=== PATIENT | female | born 1960 | race Caucasian/White ===

== ENCOUNTER → 2018-01-03 08:41 | Outpatient (CLI) | payer BC, SELFPAY ==
--- NOTE | 2018-01-03 08:53 | XR_ITS ---
XR knee LT 3V HISTORY: ITS.REASON: LEFT KNEE PAIN ORDERING PHYSICIAN: Odette Whiteehad PATIENT AGE: 57 years COMPARISON: None FINDINGS: No fracture or dislocation. No lytic or blastic change. Normal mineralization. No significant arthritic changes evident. No other significant findings IMPRESSION: Negative Knee
== END ==
PROVIDERS: PCP Nurse Practitioner Family; Visit Provider Nurse Practitioner Family
DX: M25.562 Pain in left knee (principal)
CPT/HCPCS: 73562

== ENCOUNTER 2020-08-07 10:58 | Outpatient (CLI) | payer BC, SELFPAY ==
[2020-08-07] VITALS (9 sets, daily range): BP systolic 112–140; BP diastolic 65–73; PULSE 63–77; RESP 16–20; TEMP 36.8–37.2; O2SAT 93–94
== END 2020-08-07 13:32 | disposition home or self-care (01) ==
PROVIDERS: PCP Family Medicine; Visit Provider Family Medicine
DX: U07.1 COVID-19 (principal)
CPT/HCPCS: 96365

== ENCOUNTER → 2021-12-29 16:50 | Outpatient (CLI) | payer BC, SELFPAY ==
[2021-12-29 18:59] LABS: Amphetamine/Metha Screen,Urine Negative ng/ml (<1000)
[2021-12-29 19:00] LABS: Barbiturates Screen,Urine Negative ng/ml (<200); Benzodiazepines Screen,Urine Negative ng/ml (<200)
[2021-12-29 19:01] LABS: Cannabinoid Screen,Urine Negative ng/ml (<50)
[2021-12-29 19:02] LABS: Cocaine Screen,Urine Negative ng/ml (<300); Methadone Screen,Urine Negative ng/ml (<300)
[2021-12-29 19:03] LABS: Opiate Screen,Urine Negative ng/ml (<300)
[2021-12-29 19:04] LABS: Phencyclidine Screen,Urine Negative ng/ml (<25)
== END ==
PROVIDERS: Visit Provider Emergency Medicine
DX: Z79.899 Other long term (current) drug therapy (principal)
CPT/HCPCS: 80305

== ENCOUNTER 2024-04-28 13:45 | Emergency (ER) | payer BC, SELFPAY ==
[2024-04-28 14:01] VITALS: BP 149/54; PULSE 73; RESP 20; TEMP 36.7; O2SAT 98; BMI 17.4
--- NOTE | 2024-04-28 14:11 | EXP.UTC ---
Discharge Plan Disposition Patient Disposition: Home, Self-Care Condition: Good Prescriptions Prescriptions: No Action amoxicillin 500 mg tablet 500 mg PO BID 10 Days Qty: 20 0RF Anoro Ellipta 62.5-25 mcg/actuation blister with device 1 inh inhalation DAILY Qty: 60 3RF Referrals Follow up/Referrals: Emperatriz Angeles MD [Primary Care Provider] - See instructions Activity Restrictions/Add. Instructions Additional Instructions/Restrictions: Go to Dr. Muhammad office by 3:30. He will meet you there for an examination. Do not strain your eyes with reading, watching television, or exercising. Clinical Impressions Clinical Impression: Vitreous floaters of left eye Instructions Patient Instructions: DI for Eye Floaters Print Language Print Language: Kazakh Discharge ED Provider: Cortney Naranjo [facility] General Stated complaint: left eye foggy Mode of Arrival: Ambulatory Source of Information: Patient Time Seen by Provider: 04/28/24 14:09 Description of Symptoms (Recalled from Triage Doc. by RN): BLACK FLOATERS IN LEFT EYE TOWARDS THE BOTTOM, STATES MILD HEADACHE TOWARDS BACK OF HEAD HEENT Symptoms (Recalled from RN notes): Yes Resp Symptoms (Recalled from RN notes): No Skin Symptoms (Recalled from RN notes): No MS Symptoms (Recalled from RN notes): No Functional Status (Recalled from RN notes): WNL History of Present Illness Provider Complaint: Pt reports that she was cleaning at around 1 pm she noticed a substantial amount of floaters appeared in her left eye. She thought perhaps she got something in her eye and removed her contacts and flushed her eye out. She reports that the floaters remained and most have accumulated in the left lower quadrant of her eye. Reports that vision is foggy in that eye. Related Data Previous Rx's ?Medication ?Instructions ?Recorded amoxicillin 500 mg tablet 500 mg PO BID 10 days #20 tabs 05/25/22 umeclidinium 62.5 mcg-vilanterol 1 inh inhalation DAILY #60 ea 06/08/23 25 mcg/actuation powdr for inhalation (Anoro Ellipta) Allergies Allergy/AdvReac Type Severity Reaction Status Date / Time From AUGMENTIN Allergy Mild I-RASH Uncoded 10/21/17 14:05 MORPHINE Allergy Mild UKNOWN Uncoded 10/21/17 14:05 Worker's Comp Is this a Worker's Comp case?: No [facility] Disclaimer: The information contained in this section may have been updated after the patient was seen, as this information can be updated by other users. Social History Smoking Status: Current every day smoker tobacco type: cigarettes packs per day: 2 alcohol intake: current alcohol intake frequency: holidays/special occasions only current occupational status: employed Travel in the last 8 weeks: None household members: family housing: house ROS Obtained: Yes All systems reviewed & no additional complaints except as documented Constitutional Constitutional: Reports system reviewed and no additional complaints, except as documented and Reports headache(s) Eyes Eyes: Reports system reviewed and no additional complaints, except as documented, Reports change in vision, Reports floaters and Reports requires corrective lenses ENT Ears, Nose, Mouth, and Throat: Reports system reviewed and no additional complaints, except as documented and Reports headache(s) Cardiovascular Cardiovascular: Reports system reviewed and no additional complaints, except as documented Respiratory Respiratory: Reports system reviewed and no additional complaints, except as documented Gastrointestinal Gastrointestingal: Reports system reviewed and no additional complaints, except as documented Genitourinary Female Genitourinary: Reports system reviewed and no additional complaints, except as documented Musculoskeletal Musculoskeletal: Reports system reviewed and no additional complaints, except as documented Integumentary/Breasts Skin/Breast: Reports system reviewed and no additional complaints, except as documented Neurologic Neurologic: Reports system reviewed and no additional complaints, except as documented and Reports headache(s) Endocrine Endocrine: Reports system reviewed and no additional complaints, except as documented Hematologic/Lymphatic Henatologic/Lymphatic: Reports system reviewed and no additional complaints, except as documented Allergic/Immunologic Allergic/Immunologic: Reports system reviewed and no additional complaints, except as documented Physical Exam General General appearance: alert and in no apparent distress Head Head exam: atraumatic and normocephalic Eye Eye exam: Present normal appearance, PERRL and EOMI ENT ENT exam: Present normal exam and normal oropharynx Neck Neck exam: Present normal inspection Chest Chest inspection: Present normal inspection and symmetric chest wall rise Respiratory Respiratory exam: Present normal lung sounds bilaterally Cardiovascular Cardiovascular exam: Present regular rate and normal rhythm Abdominal Exam Abdominal exam: Present soft Extremities Exam Extremities exam: Present normal inspection Back Exam Back exam: Present normal inspection Neurological Exam Neurological exam: Present alert and oriented X3 Psychiatric Psychiatric exam: Present normal affect and normal mood Skin Skin exam: Present warm, dry and intact Lymphatic Lymphatic Findings: no adenopathy Medical Decision Making Medical Records Screening: Per USPSTF and CDC recommendations, given the prevalence of disease in our region, it is our hospital?s policy to screen for HIV and viral Hepatitis for all patients aged 18 and over and those with ongoing risk factors. Jesus Inquiry Pt receiving controlled substance: No Jesus was queried for this patient: No Vital Signs: 04/28/24 14:01 Temperature 98.0 F Temperature Source Oral Pulse Rate [Left Brachial] 73 Respiratory Rate 20 Blood Pressure [Left Arm] 149/54 H Blood Pressure Mean [Left Arm] 85 02 Sat by Pulse Oximetry 98 Medical Decision Narrative: Discussed pt symptoms with Dr. Muhammad. He advised that he will see pt in his office at 3:30pm today.
[2024-04-28 14:43] VITALS: BP 149/54; PULSE 73; RESP 20; TEMP 36.7
== END 2024-04-28 14:46 | disposition home or self-care (01) ==
PROVIDERS: Emergency Provider Nurse Practitioner Family; PCP Family Medicine
DX: H43.392 Other vitreous opacities, left eye (principal); H53.8 Other visual disturbances; R51.9 Headache, unspecified
CPT/HCPCS: 99212; G0381

== ENCOUNTER 2025-03-13 15:45 | Outpatient (CLI) | payer BC, SELFPAY | END 2025-03-13 23:59 | disposition home or self-care (01) | LOC: LAB.DROPOF 03-14 13:21 | PROVIDERS: PCP Student in an Organized Health Care Education/Training Program; Visit Provider Student in an Organized Health Care Education/Training Program | DX: N39.0 Urinary tract infection, site not specified (principal) | CPT/HCPCS: 87086 ==

== ENCOUNTER 2025-03-18 15:42 | Inpatient (IN) | payer BC, SELFPAY ==
[2025-03-18] VITALS (8 sets, daily range): BP systolic 120–153; BP diastolic 44–93; PULSE 58–86; RESP 13–20; TEMP 36.6–36.7; O2SAT 92–98; BMI 18.3; BMI 17.4
--- NOTE | 2025-03-18 16:16 | CT_ITS ---
PROCEDURE INFORMATION: Exam: CT Abdomen And Pelvis With Contrast Exam date and time: 03/18/2025 5:02 PM Age: 65 years old Clinical indication: Other: No bm 1 week, passing flatus, dysuria TECHNIQUE: Imaging protocol: Computed tomography of the abdomen and pelvis with contrast. Total images: 254 Radiation optimization: All CT scans at this facility use at least one of these dose optimization techniques: automated exposure control; mA and/or kV adjustment per patient size (includes targeted exams where dose is matched to clinical indication); or iterative reconstruction. Contrast material: ISOVUE; Contrast volume: 75 ml; Contrast route: IV; COMPARISON: No relevant prior studies available. FINDINGS: Lungs: Lung bases are clear. Liver: Normal. No mass. Gallbladder and biliary ducts: Status post cholecystectomy. Pancreas: Normal. No ductal dilation. Spleen: Granulomatous calcifications present within the spleen. Adrenal glands: Normal. No mass. Kidneys and ureters: Normal. No hydronephrosis. Stomach and bowel: Thickening of the ly of the descending and rectosigmoid colon. Findings may be consistent with colitis/diverticulitis. Air and fluid collection is noted adjacent to the areas of colitis which may be consistent with developing abscess. Large amount of stool is present throughout the colon. Appendix: No evidence of appendicitis. Intraperitoneal space: Normal. No significant fluid collection. Vasculature: Unremarkable. No abdominal aortic aneurysm. Lymph nodes: No mesenteric or retroperitoneal lymphadenopathy. Urinary bladder: Unremarkable as visualized. Reproductive: Unremarkable as visualized. Bones/joints: The lumbar spine demonstrates mild degenerative changes at multiple levels. Soft tissues: Soft tissues are normal. Other findings: Fluid noted within the pelvis. IMPRESSION: 1. Thickening of the ly of the descending and rectosigmoid colon. Findings may be consistent with colitis/diverticulitis. 2. Air and fluid collection is noted adjacent to the areas of colitis which may be consistent with developing abscess. 3. Fluid noted within the pelvis. 4. No mesenteric or retroperitoneal lymphadenopathy. 5. Large amount of stool is present throughout the colon.
[2025-03-18 16:26] LABS: Microscopic, Urine URINE MICROSCOPIC (MICROSCOPIC)
[2025-03-18] MEDS: ACETAMINOPHEN 1,000MG/100ML VIAL 1000 MG IV (16:28)
[2025-03-18] MEDS: LACTATED RINGERS 1000ML 1,000 ML 999 ML IV (16:29)
[2025-03-18] MEDS: ONDANSETRON 4MG/2ML VIAL 4 MG IV ×2 (16:29→22:25)
[2025-03-18 16:35] LABS: Hematocrit 43.4 % (37.0-47.0); Hemoglobin 14.7 g/dL (12.2-16.2); Immature Granulocytes % 0.3 %; Mean Corpuscular HGB Conc 33.9 g/dL (31.8-35.4); Mean Corpuscular Hemoglobin 30.9 pg (27.0-31.2); Mean Corpuscular Volume 91.2 fl (81-99); Nucleated Red Blood Cells % 0 %; Platelet Count 289 K/mm3 (142-424); Red Blood Count 4.76 M/mm3 (4.20-5.40); Red Cell Distribution Width-SD 40.1 fL; White Blood Count 11.7 K/mm3 (4.8-10.8)
[2025-03-18 16:37] LABS: Albumin Level 4.2 g/dl (3.5-5.0); Chloride 96 mmol/L (98-107); Sodium 137 mmol/L (136-145)
[2025-03-18 16:39] LABS: Bilirubin,Urine Negative (Negative); Color,Urine YELLOW (Yellow); Glucose,Urine (UA) Negative (Negative); Ketones,Urine Negative (Negative); Leukocyte Esterase,Urine Negative (Negative); PH,Urine 6.0 (5.0-8.5); Protein,Urine TRACE (Negative); Specific Gravity, Urine 1.020 (1.005-1.030); Urobilinogen,Urine 4.0 EU/dl (0.2)
[2025-03-18 16:40] LABS: Alanine Aminotransferase 12 U/L (12-78); Albumin/Globulin Ratio 1.2 (1.1-1.8); Alkaline Phosphatase 106 U/L (38-126); Anion Gap 10.9 mEq/L (5-15); Aspartate Amino Transferase 21 U/L (14-36); Bilirubin,Total 1.1 mg/dl (0.2-1.3); Blood Urea Nitrogen 6 mg/dl (7-17); Carbon Dioxide 33 mmol/L (22.0-30.0); Creatinine Clearance Estimated 39 mL/min (50-200); Creatinine,Serum 0.50 mg/dl (0.52-1.04); Estimated Glomerular Filt Rate 125 ml/min (>60); GFR (African American) 151 ML/MIN (>60); Globulin 3.6 g/dL (1.3-3.2); Lipase 41 U/L (23-300); Total Protein,Serum 7.8 g/dl (6.3-8.2)
[2025-03-18 16:41] LABS: Calcium 9.3 mg/dl (8.4-10.2); Glucose 138 mg/dl (74-100)
--- NOTE | 2025-03-18 16:42 | HMH.EDGENADL ---
Discharge Plan Disposition Patient Disposition: Admitted Clinical Impressions Clinical Impression: Perforated sigmoid colon, Abdominal abscess, Acute hypokalemia Discharge ED Provider: Ji Hernandez General Adult HPI General Chief complaint: Abdominal Pain Stated complaint: Lower abdominal pain Time Seen by Provider: 03/18/25 16:02 Mode of Arrival: Ambulatory Source of Information: Patient Description of Symptoms (Recalled from ER Triage Doc. by RN): pt presents for evaluation of abdominal pain and constipation x 1 week. History of Present Illness HPI narrative: Patient is a 65-year-old female with past medical history of previous cholecystectomy with diarrhea at baseline who presents to the emergency department for evaluation of inability to have a bowel movement. Patient was seen for suprapubic discomfort recently and treated with Macrobid for a urinary tract infection which culture grew out negative. Last bowel movement last Tuesday or Tuesday, is still able to pass flatus with pain and straining. No trauma. No chest pain reported. No other acute complaints at this time. Please note that above description of symptoms, in this electronic medical record under categorization of recalled from ER triage doctor by RN are reflective of an initial nursing assessment, however, is not reflective of my full history and physical exam that was personally taken and clarified. Consequentially, this preceding description of symptoms, which may include the patient's categorized chief complaint in the EMR, do not reflect my personal clinical impression, and the ultimate description of history of present illness and patient stated complaints should be deferred to this section of the note. Unless stated otherwise or congruent with this section of the note, additional signs, symptoms, or incongruence should be interpreted as inaccurate with my clinical impression. Related Data Previous Rx's ?Medication ?Instructions ?Recorded nitrofurantoin 100 mg PO Q12H 7 days #14 caps 03/13/25 monohydrate/macrocrystals 100 mg capsule Allergies Allergy/AdvReac Type Severity Reaction Status Date / Time From AUGMENTIN Allergy Mild I-RASH Uncoded 03/13/25 16:50 MORPHINE Allergy Mild UKNOWN Uncoded 03/13/25 16:50 PFSH [facility] Disclaimer: The information contained in this section may have been updated after the patient was seen, as this information can be updated by other users. Social History Smoking Status: Current every day smoker tobacco type: cigarettes packs per day: 2 alcohol intake: current alcohol intake frequency: holidays/special occasions only current occupational status: employed Travel in the last 8 weeks?: None household members: family housing: house Have you lived/traveled outside US in past 30 days?: No Contact w/someone who lives/traveled outside US past 30 days?: No Exposure to someone with infectious disease in past 14 days?: No Do you have a fever (greater than 100.4 F or 38 C)?: No Have you tested positive for COVID-19?: No Exposed to someone with COVID-19 in past 14 days?: No Do you have a sore throat?: No Do you have a cough?: No Do you have any weakness?: No Do you have any diarrhea?: No Are you experiencing any unusual bleeding?: No Do you have any muscle aches/pain?: No Do you have any abdominal pain?: No Are you experiencing loss of taste or smell?: No Other Medical History Have you received the Flu Vaccine for this season: No Have you received the Pneumonia Vaccine: No ROS Obtained: Yes Systems reviewed as appropriate & no additional complaints except as documented Physical Exam General General appearance: alert and in no apparent distress Head Head exam: atraumatic and normocephalic Eye Eye exam: Present PERRL and EOMI ENT ENT exam: Present mucous membranes moist Neck Neck exam: Present normal inspection Chest Chest inspection: Present normal inspection and symmetric chest wall rise Respiratory Respiratory exam: Present normal lung sounds bilaterally; Absent respiratory distress Cardiovascular Cardiovascular exam: Present regular rate and normal rhythm Abdominal Exam Abdominal exam: Present soft, distention (Mild) and tenderness (Mild, diffuse, worse suprapubic) Extremities Exam Extremities exam: Present normal inspection Neurological Exam Neurological exam: Present alert Psychiatric Psychiatric exam: Present normal affect Skin Skin exam: Present warm and dry Medical Decision Making Medical Records Screening: Per USPSTF and CDC recommendations, given the prevalence of disease in our region, it is our hospital?s policy to screen for HIV and viral Hepatitis for all patients aged 18 and over and those with ongoing risk factors. Jesus Inquiry Pt receiving controlled substance: No Vital Signs: 03/18/25 15:57 03/18/25 16:31 03/18/25 17:30 Temperature 98 F Temperature Source Oral Pulse Rate 75 79 Pulse Rate [Right] 86 Respiratory Rate 18 18 Blood Pressure 127/44 L Blood Pressure [Right Arm] 138/56 L Blood Pressure Mean Blood Pressure Mean [Right Arm] 83 Blood Pressure Source [Right Arm] Automatic Cuff Blood Pressure Position [Right Arm] Sitting 02 Sat by Pulse Oximetry 98 93 L 97 Oxygen Delivery Method Room Air 03/18/25 17:56 03/18/25 18:00 03/18/25 18:30 Temperature Temperature Source Pulse Rate 58 L 65 75 Pulse Rate [Right] Respiratory Rate 19 17 16 Blood Pressure 120/67 132/71 142/93 H Blood Pressure [Right Arm] Blood Pressure Mean 103 Blood Pressure Mean [Right Arm] Blood Pressure Source [Right Arm] Blood Pressure Position [Right Arm] 02 Sat by Pulse Oximetry 94 L 94 L 96 Oxygen Delivery Method 03/18/25 19:57 Temperature 98.1 F Temperature Source Pulse Rate 68 Pulse Rate [Right] Respiratory Rate 20 Blood Pressure 153/88 H Blood Pressure [Right Arm] Blood Pressure Mean Blood Pressure Mean [Right Arm] Blood Pressure Source [Right Arm] Blood Pressure Position [Right Arm] 02 Sat by Pulse Oximetry Oxygen Delivery Method Room Air Lab Data Lab Results 03/18/25 16:20: WBC 11.7 H, RBC 4.76, Hgb 14.7, Hct 43.4, MCV 91.2, MCH 30.9, MCHC 33.9, RDW 11.9, Plt Count 289, MPV 8.7, Neut % (Auto) 81.9 H, Lymph % (Auto) 8.9 L, Towner % (Auto) 8.1, Eos % (Auto) 0.4, Baso % (Auto) 0.4, Neut # (Auto) 9.6 H, Lymph # (Auto) 1.0, Towner # (Auto) 1.0, Eos # (Auto) 0.1, Baso # (Auto) 0.1, Sodium 137, Potassium 2.9 L*, Chloride 96 L, Carbon Dioxide 33 H, Anion Gap 10.9, BUN 6 L, Creatinine 0.50 L, Estimated Creat Clear 39, Estimated GFR 125, Est GFR ( Amer) 151, Glucose 138 H, Calcium 9.3, Total Bilirubin 1.1, AST 21, ALT 12, Alkaline Phosphatase 106, C-Reactive Protein 141.9 H, Total Protein 7.8, Albumin 4.2, Globulin 3.6 H, Albumin/Globulin Ratio 1.2, Lipase 41, Procalcitonin 0.061 03/18/25 16:22: Urine Color Yellow, Urine Appearance Clear, Urine pH 6.0, Ur Specific Thrall 1.020, Urine Protein Trace, Urine Glucose (UA) Negative, Urine Ketones Negative, Urine Blood 3+ A, Urine Nitrate Negative, Urine Bilirubin Negative, Urine Urobilinogen 4.0, Ur Leukocyte Esterase Negative, Urine RBC 20-50, Urine WBC 3-5, Ur Squamous Epith Cells 3-5, Urine Bacteria 1+ 03/18/25 16:20 03/18/25 16:20 Orders (Tests/Meds): ED MEDICATIONS Generic Name Dose Route Start Last Admin Trade Name Freq PRN Reason Stop Dose Admin Acetaminophen 650 mg 03/18/25 19:34 Acetaminophen 325mg Tab PO 04/17/25 19:33 Q4HP PRN Fever or Mild Pain (1-3) Potassium Chloride/Water 100 mls @ 50 mls/hr 03/18/25 17:19 03/18/25 19:24 Potassium Chloride 20meq/100ml Ivpb IV 03/18/25 21:18 50 mls/hr Q2H BRE Administration Lactated Ringer's 1,000 mls @ 100 mls/hr 03/18/25 19:45 Lactated Ringer's 1000 Ml Bag IV 04/17/25 19:44 .Q10H BRE Morphine Sulfate 2 mg 03/18/25 19:34 Morphine 2mg/Ml Syringe IV 04/17/25 19:33 Q2HP PRN Moderate Pain (4-6) Morphine Sulfate 4 mg 03/18/25 19:43 Morphine 4mg/Ml Syringe IV 04/17/25 19:42 Q4HP PRN Severe Pain (7-10) Ondansetron HCl 4 mg 03/18/25 19:34 Ondansetron 4mg/2ml Vial IV 04/17/25 19:33 Q8HP PRN Nausea Discontinued Medications Generic Name Dose Route Start Last Admin Trade Name Freq PRN Reason Stop Dose Admin Acetaminophen 1,000 mg 03/18/25 16:16 03/18/25 16:28 Acetaminophen 1,000mg/100ml Vial IV 03/18/25 16:17 1,000 mg ONCE ONE Administration Lactated Ringer's 1,000 mls @ 999 mls/hr 03/18/25 16:16 03/18/25 19:26 Lactated Ringer's 1000 Ml Bag IV 03/18/25 17:16 Infused .Q1H1M ONE Infusion Piperacillin Sod/Tazobactam 100 mls @ 200 mls/hr 03/18/25 18:12 03/18/25 19:01 Sod 4.5 gm/ Sodium Chloride IV 03/18/25 18:41 Infused ONCE ONE Infusion Iopamidol 75 ml 03/18/25 17:06 03/18/25 17:07 Iopamidol-370 (76%);100ml Bottle IV 03/18/25 17:07 75 ml ONCE ONE Administration Ondansetron HCl 4 mg 03/18/25 16:16 03/18/25 16:29 Ondansetron 4mg/2ml Vial IV 03/18/25 16:17 4 mg ONCE ONE Administration Sodium Chloride 10 ml 03/18/25 17:06 03/18/25 17:07 Sodium Chloride 0.9% 10ml Syr (Rad Only) IV 03/18/25 17:07 10 ml ONCE ONE Administration ORDERS Category Date Time Status CT abdomen pelvis w con Stat Cat Scan 03/18/25 16:16 Completed CBC w/Auto Diff [Complete Blood Count Auto Diff] Stat Lab 03/18/25 16:20 Completed CMP [Comprehensive Metabolic Panel] Stat Lab 03/18/25 16:20 Completed Lipase Stat Lab 03/18/25 16:20 Completed UA [Urinalysis and Microscopic] Stat Lab 03/18/25 16:22 Completed Medical Decision Narrative: In summary patient is a 65-year-old female past medical history described above who presents emerged part for evaluation of abdominal pain and inability to have a bowel movement. Patient is hemodynamically stable nontoxic-appearing but on, afebrile. Differential diagnosis includes constipation, incomplete bowel obstruction, stercoral colitis, among others. Workup we conducted with hematologic labs, CT abdomen pelvis IV contrast, urinalysis. Initial inventions include Zofran, IV Tylenol, crystalloid bolus. Initial workup reviewed by me hematologic labs remarkable for white blood cell count 11.7 hyponatremia she will be repleted with IV potassium no ARSENIO or critical electrolyte abnormality otherwise. Urinalysis interpreted by me there is hematuria but is not consistent with overt infection. CT imaging abdomen pelvis informally visualized by me there appears to be a fluid collection with surrounding free air in the left lower quadrant. Zosyn will be initiated. Sepsis bolus fluids were considered but will be deferred given the patient is largely euvolemic and not tachycardic. I had interactive discussion with radiology there is thickening of the ly of the descending rectosigmoid colon which may be consistent with diverticulitis versus colitis with air-fluid collection adjacent to the areas of colitis concerning for developing abscess with fluid in the pelvis. No lymphadenopathy and a large amount of stool present throughout the colon. I discussed case with Dr. Lambert regarding management this patient is appropriate to stay at our hospital with IV antibiotics to see how she responds given her hemodynamic status. I discussed this option with the patient and she does not wish to stay here [facility] Evans [facility] back, unfortunately they do not have the capacity to accept her at this time. This was relayed to the patient and she is amenable to staying here. The case discussed with hospital medicine regarding management of admit the patient to service for continued evaluation at this time. Critical Care Critical Care Time Critical Care Time: No
[2025-03-18 16:47] LABS: Potassium 2.9 mmoL/L (3.5-5.1)
[2025-03-18 16:58] LABS: Bacteria,Urine 1+ /lpf
[2025-03-18 16:59] LABS: RBC,Urine 20-50 #/hpf (0-3)
[2025-03-18] MEDS: SODIUM CHLORIDE 0.9% 10ML SYR (RAD ONLY) 10 ML IV (17:07)
[2025-03-18] MEDS: IOPAMIDOL-370 (76%);100ML BOTTLE 75 ML IV (17:07)
--- NOTE | 2025-03-18 17:19 | PC.NURSE ---
verbal order from dr malagon to give 40 of k iv for potassium 2.9
--- NOTE | 2025-03-18 18:25 | PC.NURSE ---
Called [facility] for a patient transfer they said they will call back when the hospitalist is ready to talk.
[2025-03-18] MEDS: PIPERACILLIN/TAZO 4.5 GM in 0.9 % SODIUM CHLORIDE 100 ML IV (18:28)
--- NOTE | 2025-03-18 19:34 | EXP.HP ---
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 She states she has not had a bowel movement in several days, and thinks is likely related to a week, and has been having suprapubic abdominal pain for about a week. She notes she was started on Macrobid for UTI on 03/13 but her urine culture was normal so she discontinued it. He states her abdominal pain is no better after starting Macrobid. Denies nausea/vomiting, back pain, fever/chills, urinary symptoms. She reports ever she has had a cholecystectomy send chronic diarrhea so constipation is new for her. No new medications, dietary changes. She states she does not drink water, solely relies on Pepsi. Workup in the ED significant for WBC 11.7, potassium 2.9, grossly abnormal UA, CT abdomen/pelvis consistent with rectosigmoid colitis with associated developing abscess and large stool burden. Patient denies NSAID use, alcohol. Given these findings, ED provider consulted general surgery who recommended medical management at this time with IV antibiotics and reevaluation tomorrow. They also discussed case with me and I decided to admit patient for colitis with associated abscess and possible perforation. [facility] Disclaimer: The information contained in this section may have been updated after the patient was seen, as this information can be updated by other users. Medical History (Updated 03/18/25 @ 20:39 by Bridget Sales RN) Asthma COPD (chronic obstructive pulmonary disease) Colonoscopy planned Surgical History (Updated 03/18/25 @ 20:39 by Bridget Sales RN) Hx of breast biopsy Hx of cholecystectomy Social History (Updated 03/18/25 @ 20:39 by Bridget Sales RN) Smoking Status: Current every day smoker tobacco type: cigarettes packs per day: 2 alcohol intake: never current occupational status: employed Travel in the last 8 weeks?: None household members: family housing: house Have you lived/traveled outside US in past 30 days?: No Contact w/someone who lives/traveled outside US past 30 days?: No Exposure to someone with infectious disease in past 14 days?: No Do you have a fever (greater than 100.4 F or 38 C)?: No Have you tested positive for COVID-19?: No Exposed to someone with COVID-19 in past 14 days?: No Do you have a sore throat?: No Do you have a cough?: No Do you have any weakness?: No Are you experiencing any nausea/vomitting?: No Do you have any diarrhea?: No Are you experiencing any unusual bleeding?: No Do you have any muscle aches/pain?: No Do you have any abdominal pain?: No Are you experiencing loss of taste or smell?: No Other Medical History Have you received the Flu Vaccine for this season: No Have you received the Pneumonia Vaccine: No Meds Home Medications and Allergies Home Medications ?Medication ?Instructions ?Recorded ?Confirmed ?Type albuterol 90 mcg-budesonide 80 2 inh inhalation DAILY PRN SOA 03/18/25 03/18/25 History mcg/actuation HFA aerosol inhaler New Prescriptions to Start Prescriptions: Allergies Allergy/AdvReac Type Severity Reaction Status Date / Time From AUGMENTIN Allergy Mild I-RASH Uncoded 03/13/25 16:50 MORPHINE Allergy Mild [place] Uncoded 03/13/25 16:50 Exam Data for Last 24 hours Vital signs and Labs for Last 24 Hours: Temp Pulse Resp BP Pulse Ox O2 Del Method 98 F 75 16 142/93 H 96 Room Air 03/18/25 15:57 03/18/25 18:30 03/18/25 18:30 03/18/25 18:30 03/18/25 18:30 03/18/25 15:57 Laboratory Results - last 24 hr 03/18/25 16:20: WBC 11.7 H, RBC 4.76, Hgb 14.7, Hct 43.4, MCV 91.2, MCH 30.9, MCHC 33.9, RDW 11.9, Plt Count 289, MPV 8.7, Neut % (Auto) 81.9 H, Lymph % (Auto) 8.9 L, [place] % (Auto) 8.1, Eos % (Auto) 0.4, Baso % (Auto) 0.4, Neut # (Auto) 9.6 H, Lymph # (Auto) 1.0, [place] # (Auto) 1.0, Eos # (Auto) 0.1, Baso # (Auto) 0.1, Sodium 137, Potassium 2.9 L*, Chloride 96 L, Carbon Dioxide 33 H, Anion Gap 10.9, BUN 6 L, Creatinine 0.50 L, Estimated Creat Clear 39, Estimated GFR 125, Est GFR ( Amer) 151, Glucose 138 H, Calcium 9.3, Total Bilirubin 1.1, AST 21, ALT 12, Alkaline Phosphatase 106, Total Protein 7.8, Albumin 4.2, Globulin 3.6 H, Albumin/Globulin Ratio 1.2, Lipase 41 03/18/25 16:22: Urine Color Yellow, Urine Appearance Clear, Urine pH 6.0, Ur Specific [place] 1.020, Urine Protein Trace, Urine Glucose (UA) Negative, Urine Ketones Negative, Urine Blood 3+ A, Urine Nitrate Negative, Urine Bilirubin Negative, Urine Urobilinogen 4.0, Ur Leukocyte Esterase Negative, Urine RBC 20-50, Urine WBC 3-5, Ur Squamous Epith Cells 3-5, Urine Bacteria 1+ I & O for Last 24 hours: Intake & Output 03/15/25 03/16/25 03/17/25 03/18/25 23:59 23:59 23:59 23:59 Intake Total 1197.5 / 1197.5 Balance 1197.5 / 1197.5 Weight 42.547 kg Constitutional Constitutional: no acute distress *Routine HEENT Exam Head: Present normocephalic Eye: Present EOMI and PERRL ENT: Present mucous membranes moist *Routine Neck Exam Neck: Present supple; Absent lymphadenopathy *Routine Respiratory Exam Respiratory: Present CTA bilaterally *Routine Cardiovascular Exam Cardiovascular: Present RRR *Routine Abdominal Exam Abdominal: Present soft and tenderness; Absent normoactive bowel sounds Comments: Mild generalized abdominal tenderness, with focal moderate tenderness in the left lower quadrant without peritoneal signs. Reduced bowel sounds. No distention. 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 She states she has not had a bowel movement in several days, and thinks is likely related to a week, and has been having suprapubic abdominal pain for about a week. She notes she was started on Macrobid for UTI on 03/13 but her urine culture was normal so she discontinued it. He states her abdominal pain is no better after starting Macrobid. Denies nausea/vomiting, back pain, fever/chills, urinary symptoms. She reports ever she has had a cholecystectomy send chronic diarrhea so constipation is new for her. No new medications, dietary changes. She states she does not drink water, solely relies on Pepsi. Workup in the ED significant for WBC 11.7, potassium 2.9, grossly abnormal UA, CT abdomen/pelvis consistent with rectosigmoid colitis with associated developing abscess and large stool burden. Patient denies NSAID use, alcohol. Given these findings, ED provider consulted general surgery who recommended medical management at this time with IV antibiotics and reevaluation tomorrow. They also discussed case with me and I decided to admit patient for colitis with associated abscess and possible perforation. #Rectosigmoid stercoral colitis #Suspected rectosigmoid perforation #Constipation ? Presents with 1 week onset of suprapubic abdominal pain, constipation. ? CT abdomen/pelvis consistent with rectosigmoid colitis with associated developing abscess and large stool burden. ? With stercoral colitis and associated abscess, concern for perforation. Patient at this time does not have peritoneal signs, and looks relatively comfortable. ? Discussed with general surgery, recommend medical management at this time with IV antibiotics and agreed to avoid enemas and instead treat constipation with MiraLAX. ? Started IV Zosyn 3.375 g every 6 hours. Continue to [place] dose. ? Tylenol, [place] as needed for pain control but patient prefers Tylenol (sensitive to opioids, apparent family history of anaphylaxis to morphine). Avoid NSAIDs due to possible perforation. ? WBC 11.7, CRP 141.9 no signs of sepsis at this time. ? Clear liquid diet, started MiraLAX 17 g daily per surgery recommendations. ? Follow-up blood cultures. Obtained after antibiotics were started. ? Follow-up morning CBC, CRP. #Hypokalemia ? Initial potassium 2.9, magnesium normal. Repleted with IV potassium 40 mill equivalents. ? Follow-up morning potassium. #COPD ? DuoNebs as needed. Full code DVT prophylaxis: SCDs
--- NOTE | 2025-03-18 19:56 | PC.NURSE ---
report called to TR[facility]
[2025-03-18 20:01] LABS: C-Reactive Protein 141.9 mg/L (0-4)
--- NOTE | 2025-03-18 20:03 | PC.NURSE ---
spoke with hospitalist regarding orders for blood cultures, pt had received antibiotics on dayshift. hospitalist requested to collect them anyways.
[2025-03-18 20:14] LABS: Procalcitonin 0.061 ng/mL (0.0-2.0)
[2025-03-18 20:22] LABS: Magnesium 1.8 mg/dl (1.6-2.3)
[2025-03-18] MEDS: LACTATED RINGERS 1000ML 1,000 ML 100 ML IV (20:24)
[2025-03-18 21:37] LABS: Hemoglobin A1C 5.6 % (4.0-6.0)
[2025-03-18] MEDS: PIPERACILLIN/TAZO 3.375 GM in 0.9 % SODIUM CHLORIDE 50 ML IV (21:42)
[2025-03-18] MEDS: POLYETHYLENE GLYCOL 3350 17 GM PACKET PO (22:17)
[2025-03-19] VITALS: BP 163/81; PULSE 73; RESP 18; TEMP 36.6; O2SAT 96
[2025-03-19] MEDS: HYDROCODONE/APAP 5/325 MG TABLET 1 TAB PO ×2 (00:38→21:25)
[2025-03-19 01:39] LABS: Chloride 104 mmol/L (98-107)
[2025-03-19 01:40] LABS: Potassium 3.7 mmoL/L (3.5-5.1); Sodium 137 mmol/L (136-145)
[2025-03-19 01:42] LABS: Blood Urea Nitrogen 4 mg/dl (7-17); Creatinine Clearance Estimated 37 mL/min (50-200); Creatinine,Serum 0.50 mg/dl (0.52-1.04); Estimated Glomerular Filt Rate 125 ml/min (>60); GFR (African American) 151 ML/MIN (>60)
[2025-03-19 01:43] LABS: Anion Gap 6.7 mEq/L (5-15); Calcium 8.4 mg/dl (8.4-10.2); Carbon Dioxide 30 mmol/L (22.0-30.0); Glucose 136 mg/dl (74-100)
[2025-03-19 04:00] VITALS: BP 144/68; PULSE 64; RESP 16; TEMP 36.9; O2SAT 92; BMI 17.9
[2025-03-19 06:00] LABS: Hematocrit 35.3 % (37.0-47.0); Immature Granulocytes % 0.2 %; Mean Corpuscular HGB Conc 32.0 g/dL (31.8-35.4); Mean Corpuscular Hemoglobin 29.4 pg (27.0-31.2); Mean Corpuscular Volume 91.9 fl (81-99); Nucleated Red Blood Cells % 0 %; Platelet Count 216 K/mm3 (142-424); Red Blood Count 3.84 M/mm3 (4.20-5.40); Red Cell Distribution Width-SD 40.3 fL; White Blood Count 9.6 K/mm3 (4.8-10.8)
--- NOTE | 2025-03-19 06:01 | PC.NURSE ---
Pt AOx4. Had some pain earlier that was relieved by prn norco earlier in the shift. Pt has been able to sleep since then. Currently resting in bed with eyes closed. Respirations even and unlabored. Bed is low, locked, and call light is in reach.
[2025-03-19 06:06] LABS: Alanine Aminotransferase 10 U/L (12-78); Albumin Level 3.0 g/dl (3.5-5.0); Albumin/Globulin Ratio 1.1 (1.1-1.8); Alkaline Phosphatase 76 U/L (38-126); Anion Gap 8.5 mEq/L (5-15); Aspartate Amino Transferase 19 U/L (14-36); Bilirubin,Total 0.6 mg/dl (0.2-1.3); Blood Urea Nitrogen 3 mg/dl (7-17); Calcium 8.2 mg/dl (8.4-10.2); Carbon Dioxide 31 mmol/L (22.0-30.0); Chloride 101 mmol/L (98-107); Creatinine Clearance Estimated 38 mL/min (50-200); Creatinine,Serum 0.50 mg/dl (0.52-1.04); Estimated Glomerular Filt Rate 125 ml/min (>60); GFR (African American) 151 ML/MIN (>60); Globulin 2.7 g/dL (1.3-3.2); Glucose 101 mg/dl (74-100); Magnesium 1.6 mg/dl (1.6-2.3); Potassium 3.5 mmoL/L (3.5-5.1); Sodium 137 mmol/L (136-145); Total Protein,Serum 5.7 g/dl (6.3-8.2)
[2025-03-19 06:12] LABS: C-Reactive Protein 108.3 mg/L (0-4)
[2025-03-19 06:37] LABS: Hemoglobin 11.7 g/dL (12.2-16.2)
--- NOTE | 2025-03-19 07:23 | EXP.SURG.CON ---
History of Present Illness *Admission Date: 03/18/25 *Reason for visit:: Probable diverticulitis *History of present illness: Patient is a 65-year-old female. 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 She has a history of chronic diarrhea since she had undergone cholecystectomy. She presented to the emergency department with abdominal pain and obstipation for about 1 week. Locates the pain in the suprapubic location. Had been started on Macrobid for UTI but this was discontinued due to a normal urine culture. Evaluation in the emergency department revealed a white blood cell count of 11,700. CT scan revealed thickening of the ly of the descending and rectosigmoid colon consistent with colitis versus diverticulitis. There is air and fluid collection noted adjacent which was read as possible developing abscess. This measures well less than 3 cm. ER physician contacted surgeon on-call for recommendations regarding management. She was admitted for inpatient care. She states that she underwent colonoscopy many years ago. This morning her white blood cell count has normalized. Patient has not had a bowel movement but states that she has been passing a lot of gas. [facility] Disclaimer: The information contained in this section may have been updated after the patient was seen, as this information can be updated by other users. Medical History (Updated 03/19/25 @ 08:39 by Fred Lambert MD) Asthma COPD (chronic obstructive pulmonary disease) Colonoscopy planned Surgical History (Updated 03/18/25 @ 20:39 by Bridget Sales RN) Hx of breast biopsy Hx of cholecystectomy Social History (Updated 03/18/25 @ 20:39 by Bridget Sales RN) Smoking Status: Current every day smoker tobacco type: cigarettes packs per day: 2 alcohol intake: never current occupational status: employed Travel in the last 8 weeks?: None household members: family housing: house Have you lived/traveled outside US in past 30 days?: No Contact w/someone who lives/traveled outside US past 30 days?: No Exposure to someone with infectious disease in past 14 days?: No Do you have a fever (greater than 100.4 F or 38 C)?: No Have you tested positive for COVID-19?: No Exposed to someone with COVID-19 in past 14 days?: No Do you have a sore throat?: No Do you have a cough?: No Do you have any weakness?: No Are you experiencing any nausea/vomitting?: No Do you have any diarrhea?: No Are you experiencing any unusual bleeding?: No Do you have any muscle aches/pain?: No Do you have any abdominal pain?: No Are you experiencing loss of taste or smell?: No Meds Home Medications and Allergies Home Medications ?Medication ?Instructions ?Recorded ?Confirmed ?Type albuterol 90 mcg-budesonide 80 2 inh inhalation DAILY PRN SOA 03/18/25 03/18/25 History mcg/actuation HFA aerosol inhaler New Prescriptions to Start Prescriptions: Allergies Allergy/AdvReac Type Severity Reaction Status Date / Time amoxicillin (From Augmentin) Allergy Rash Verified 03/19/25 07:17 clavulanic acid (From Allergy Rash Verified 03/19/25 07:17 Augmentin) morphine Allergy Unknown Verified 03/19/25 07:17 allergy reaction Exam (Inpt) Vital signs and Labs for Last 24 Hours: Temp Pulse Resp BP Pulse Ox O2 Del Method 98.4 F 64 16 144/68 H 92 L Room Air 03/19/25 04:00 03/19/25 04:00 03/19/25 04:00 03/19/25 04:00 03/19/25 04:00 03/19/25 06:33 Laboratory Results - last 24 hr 03/18/25 16:20: WBC 11.7 H, RBC 4.76, Hgb 14.7, Hct 43.4, MCV 91.2, MCH 30.9, MCHC 33.9, RDW 11.9, Plt Count 289, MPV 8.7, Neut % (Auto) 81.9 H, Lymph % (Auto) 8.9 L, [place] % (Auto) 8.1, Eos % (Auto) 0.4, Baso % (Auto) 0.4, Neut # (Auto) 9.6 H, Lymph # (Auto) 1.0, [place] # (Auto) 1.0, Eos # (Auto) 0.1, Baso # (Auto) 0.1, Sodium 137, Potassium 2.9 L*, Chloride 96 L, Carbon Dioxide 33 H, Anion Gap 10.9, BUN 6 L, Creatinine 0.50 L, Estimated Creat Clear 39, Estimated GFR 125, Est GFR ( Amer) 151, Glucose 138 H, Hemoglobin A1c 5.6, Calcium 9.3, Magnesium 1.8, Total Bilirubin 1.1, AST 21, ALT 12, Alkaline Phosphatase 106, C-Reactive Protein 141.9 H, Total Protein 7.8, Albumin 4.2, Globulin 3.6 H, Albumin/Globulin Ratio 1.2, Lipase 41, Procalcitonin 0.061 03/18/25 16:22: Urine Color Yellow, Urine Appearance Clear, Urine pH 6.0, Ur Specific [place] 1.020, Urine Protein Trace, Urine Glucose (UA) Negative, Urine Ketones Negative, Urine Blood 3+ A, Urine Nitrate Negative, Urine Bilirubin Negative, Urine Urobilinogen 4.0, Ur Leukocyte Esterase Negative, Urine RBC 20-50, Urine WBC 3-5, Ur Squamous Epith Cells 3-5, Urine Bacteria 1+ 03/19/25 01:29: Sodium 137, Potassium 3.7 D, Chloride 104, Carbon Dioxide 30, Anion Gap 6.7, BUN 4 L D, Creatinine 0.50 L, Estimated Creat Clear 37, Estimated GFR 125, Est GFR ([facility] Amer) 151, Glucose 136 H, Calcium 8.4 03/19/25 05:20: WBC 9.6, RBC 3.84 L, Hgb 11.7 L D, Hct 35.3 L, MCV 91.9, MCH 29.4, MCHC 32.0, RDW 11.9, Plt Count 216 D, MPV 9.1, Neut % (Auto) 76.2, Lymph % (Auto) 12.8, [place] % (Auto) 9.6 H, Eos % (Auto) 0.9, Baso % (Auto) 0.3, Neut # (Auto) 7.3, Lymph # (Auto) 1.2, [place] # (Auto) 0.9, Eos # (Auto) 0.1, Baso # (Auto) 0.0, Sodium 137, Potassium 3.5, Chloride 101, Carbon Dioxide 31 H, Anion Gap 8.5, BUN 3 L, Creatinine 0.50 L, Estimated Creat Clear 38, Estimated GFR 125, Est GFR ([facility]) 151, Glucose 101 H D, Calcium 8.2 L, Magnesium 1.6 D, Total Bilirubin 0.6, AST 19, ALT 10 L, Alkaline Phosphatase 76, C-Reactive Protein 108.3 H, Total Protein 5.7 L D, Albumin 3.0 L D, Globulin 2.7, Albumin/Globulin Ratio 1.1 I & O for Labs for Last 24 Hours: Intake & Output 03/16/25 03/17/25 03/18/25 03/19/25 11:59 11:59 11:59 11:59 Intake Total 1347.5 / 1347.5 Output Total 0 / 0 Balance 1347.5 / 1347.5 Weight 91 lb 4 oz GI: Present soft Comments:: Soft. Mild subjective tenderness suprapubic location. No guarding or rebound. Results Labs 03/19/25 05:20 03/19/25 05:20 Labs: Laboratory Results - last 24 hr 03/18/25 16:20: WBC 11.7 H, RBC 4.76, Hgb 14.7, Hct 43.4, MCV 91.2, MCH 30.9, MCHC 33.9, RDW 11.9, Plt Count 289, MPV 8.7, Neut % (Auto) 81.9 H, Lymph % (Auto) 8.9 L, [place] % (Auto) 8.1, Eos % (Auto) 0.4, Baso % (Auto) 0.4, Neut # (Auto) 9.6 H, Lymph # (Auto) 1.0, [place] # (Auto) 1.0, Eos # (Auto) 0.1, Baso # (Auto) 0.1, Sodium 137, Potassium 2.9 L*, Chloride 96 L, Carbon Dioxide 33 H, Anion Gap 10.9, BUN 6 L, Creatinine 0.50 L, Estimated Creat Clear 39, Estimated GFR 125, Est GFR ( Amer) 151, Glucose 138 H, Hemoglobin A1c 5.6, Calcium 9.3, Magnesium 1.8, Total Bilirubin 1.1, AST 21, ALT 12, Alkaline Phosphatase 106, C-Reactive Protein 141.9 H, Total Protein 7.8, Albumin 4.2, Globulin 3.6 H, Albumin/Globulin Ratio 1.2, Lipase 41, Procalcitonin 0.061 03/18/25 16:22: Urine Color Yellow, Urine Appearance Clear, Urine pH 6.0, Ur Specific [place] 1.020, Urine Protein Trace, Urine Glucose (UA) Negative, Urine Ketones Negative, Urine Blood 3+ A, Urine Nitrate Negative, Urine Bilirubin Negative, Urine Urobilinogen 4.0, Ur Leukocyte Esterase Negative, Urine RBC 20-50, Urine WBC 3-5, Ur Squamous Epith Cells 3-5, Urine Bacteria 1+ 03/19/25 01:29: Sodium 137, Potassium 3.7 D, Chloride 104, Carbon Dioxide 30, Anion Gap 6.7, BUN 4 L D, Creatinine 0.50 L, Estimated Creat Clear 37, Estimated GFR 125, Est GFR ( Amer) 151, Glucose 136 H, Calcium 8.4 03/19/25 05:20: WBC 9.6, RBC 3.84 L, Hgb 11.7 L D, Hct 35.3 L, MCV 91.9, MCH 29.4, MCHC 32.0, RDW 11.9, Plt Count 216 D, MPV 9.1, Neut % (Auto) 76.2, Lymph % (Auto) 12.8, [place] % (Auto) 9.6 H, Eos % (Auto) 0.9, Baso % (Auto) 0.3, Neut # (Auto) 7.3, Lymph # (Auto) 1.2, [place] # (Auto) 0.9, Eos # (Auto) 0.1, Baso # (Auto) 0.0, Sodium 137, Potassium 3.5, Chloride 101, Carbon Dioxide 31 H, Anion Gap 8.5, BUN 3 L, Creatinine 0.50 L, Estimated Creat Clear 38, Estimated GFR 125, Est GFR ( Amer) 151, Glucose 101 H D, Calcium 8.2 L, Magnesium 1.6 D, Total Bilirubin 0.6, AST 19, ALT 10 L, Alkaline Phosphatase 76, C-Reactive Protein 108.3 H, Total Protein 5.7 L D, Albumin 3.0 L D, Globulin 2.7, Albumin/Globulin Ratio 1.1 Assessment and Plan *Assessment and plan (1) Diverticulitis: Status: Acute Category: Medical Code(s): K57.92 - Diverticulitis of intestine, part unspecified, without perforation or abscess without bleeding Plan Likely somewhat complicated diverticulitis of sigmoid colon. Less likely stercoral colitis or neoplasm. Regardless at this point management would be identical with limited diet. Would limit to clear liquids at this time. IV antibiotics. Limited bowel regimen with MiraLAX. Would avoid enemas in this early acute phase. Dulcolax suppository may be reasonable. I did explain to her that if her symptoms persisted or progressed could require operative intervention. However at this time plan for nonoperative management.
[2025-03-19 08:00] VITALS: BP 140/71; PULSE 78; RESP 18; TEMP 37.1; O2SAT 92
[2025-03-19] MEDS: MAGNESIUM SULFATE IN WATER 2 GM/50 ML PIGGYBACK IV ×2 (08:41→10:13)
[2025-03-19] MEDS: POLYETHYLENE GLYCOL 3350 17 GM PACKET PO ×2 (08:41→21:25)
[2025-03-19] MEDS: POTASSIUM CHLORIDE 20MEQ TAB 40 MEQ PO ×2 (08:41→12:06)
[2025-03-19] MEDS: HYDROCODONE/APAP 5/325 MG TABLET 2 TAB PO (08:41)
[2025-03-19] MEDS: ERTAPENEM SODIUM 1 GM in 0.9 % SODIUM CHLORIDE 50 ML IV (09:23)
[2025-03-19 11:36] VITALS: BP 124/68; PULSE 60; RESP 18; TEMP 36.6; O2SAT 91
[2025-03-19] MEDS: BISACODYL 10MG SUPP 10 MG RC (12:06)
--- NOTE | 2025-03-19 13:40 | P.PN_ITS ---
Subjective *Date: 03/19/25 *Time: 19:26 Interval history: Feeling somewhat better this morning. Had a bowel movement prior to rounds. Bowel movements are hard like rabbit pellets. Denies nausea. No chest pain or shortness of breath. Still having abdominal pain in her lower abdomen. Medical Exam Vital signs and Labs for Last 24 Hours: Vital Signs Temp Pulse Pulse Resp BP BP Pulse Ox 03/19/25 11:36 97.9 F 60 18 124/68 91 L 03/19/25 10:21 03/19/25 08:56 03/19/25 08:00 03/19/25 08:00 98.7 F 78 18 140/71 92 L 03/19/25 06:33 03/19/25 05:00 03/19/25 04:00 98.4 F 64 16 144/68 H 92 L 03/19/25 03:00 03/19/25 01:00 03/19/25 00:00 97.9 F 73 18 163/81 H 96 03/18/25 23:00 03/18/25 21:00 03/18/25 20:41 97.9 F 60 13 147/58 H 92 L 03/18/25 19:57 98.1 F 68 20 153/88 H 03/18/25 19:39 03/18/25 18:30 75 16 142/93 H 96 03/18/25 18:00 65 17 132/71 94 L 03/18/25 17:56 58 L 19 120/67 94 L 03/18/25 17:30 79 18 97 03/18/25 16:31 75 127/44 L 93 L 03/18/25 15:57 98 F 86 18 138/56 L 98 O2 Del Method 03/19/25 11:36 Room Air 03/19/25 10:21 Room Air 03/19/25 08:56 Room Air 03/19/25 08:00 Room Air 03/19/25 08:00 Room Air 03/19/25 06:33 Room Air 03/19/25 05:00 Room Air 03/19/25 04:00 Room Air 03/19/25 03:00 Room Air 03/19/25 01:00 Room Air 03/19/25 00:00 Room Air 03/18/25 23:00 Room Air 03/18/25 21:00 Room Air 03/18/25 20:41 Room Air 03/18/25 19:57 Room Air 03/18/25 19:39 Room Air 03/18/25 18:30 03/18/25 18:00 03/18/25 17:56 03/18/25 17:30 03/18/25 16:31 03/18/25 15:57 Room Air Intake and Output 03/18/25 03/19/25 03/19/25 23:59 07:59 15:59 Intake Total 1347.5 / 1347.5 30 / 180 150 / 180 Output Total 0 / 0 0 / 0 0 / 0 Balance 1347.5 / 1347.5 30 / 180 150 / 180 Intake: Intake, Oral Amount / 30 Intake, Total IV Amount 1347.5 / 1347.5 150 / 150 Ertapenem Sodium 1 gm In 0.9 % 50 / 50 Sodium Chloride 50 ml @ 100 mls /hr IV Q24H [facility] Rx#:[id number] KCl 20mEq/100ml 100 ml @ 50 mls 197.5 / 197.5 /hr IV Q2H [facility] Rx#:[id number] Lactated Ringers 1000ML 1,000 1000 / 1000 ml @ 999 mls/hr IV .Q1H1M [facility] Rx#:[id number] Magnesium Sulfate in Water 2 gm 100 / 100 In 50 ml @ 50 mls/hr IV Q1H [facility] Rx#:[id number] Piperacillin/Tazo 3.375 gm In 0 50 / 50 .9 % Sodium Chloride 50 ml @ 100 mls/hr IV Q6H [facility] Rx#: [id number] Piperacillin/Tazo 4.5 gm In 0.9 100 / 100 % Sodium Chloride 100 ml @ 200 mls/hr IV ONCE ONE Rx#: [id number] Output: Output, Urine Amount 0 / 0 0 / 0 0 / 0 Other: Number of Unmeasured Voids 1 2 1 Weight 40.511 kg 41.39 kg Patient Weight 03/19/25 23:59 Weight 41.39 kg Laboratory Results - last 24 hr 03/18/25 16:20: WBC 11.7 H, RBC 4.76, Hgb 14.7, Hct 43.4, MCV 91.2, MCH 30.9, MCHC 33.9, RDW 11.9, Plt Count 289, MPV 8.7, Neut % (Auto) 81.9 H, Lymph % (Auto) 8.9 L, [place] % (Auto) 8.1, Eos % (Auto) 0.4, Baso % (Auto) 0.4, Neut # (Auto) 9.6 H, Lymph # (Auto) 1.0, [place] # (Auto) 1.0, Eos # (Auto) 0.1, Baso # (Auto) 0.1, Sodium 137, Potassium 2.9 L*, Chloride 96 L, Carbon Dioxide 33 H, Anion Gap 10.9, BUN 6 L, Creatinine 0.50 L, Estimated Creat Clear 39, Estimated GFR 125, Est GFR ( Amer) 151, Glucose 138 H, Hemoglobin A1c 5.6, Calcium 9.3, Magnesium 1.8, Total Bilirubin 1.1, AST 21, ALT 12, Alkaline Phosphatase 106, C-Reactive Protein 141.9 H, Total Protein 7.8, Albumin 4.2, Globulin 3.6 H, Albumin/Globulin Ratio 1.2, Lipase 41, Procalcitonin 0.061 03/18/25 16:22: Urine Color Yellow, Urine Appearance Clear, Urine pH 6.0, Ur Specific [place] 1.020, Urine Protein Trace, Urine Glucose (UA) Negative, Urine Ketones Negative, Urine Blood 3+ A, Urine Nitrate Negative, Urine Bilirubin Negative, Urine Urobilinogen 4.0, Ur Leukocyte Esterase Negative, Urine RBC 20- 50, Urine WBC 3-5, Ur Squamous Epith Cells 3-5, Urine Bacteria 1+ 03/19/25 01:29: Sodium 137, Potassium 3.7 D, Chloride 104, Carbon Dioxide 30, Anion Gap 6.7, BUN 4 L D, Creatinine 0.50 L, Estimated Creat Clear 37, Estimated GFR 125, Est GFR ( Amer) 151, Glucose 136 H, Calcium 8.4 03/19/25 05:20: WBC 9.6, RBC 3.84 L, Hgb 11.7 L D, Hct 35.3 L, MCV 91.9, MCH 29.4, MCHC 32.0, RDW 11.9, Plt Count 216 D, MPV 9.1, Neut % (Auto) 76.2, Lymph % (Auto) 12.8, [place] % (Auto) 9.6 H, Eos % (Auto) 0.9, Baso % (Auto) 0.3, Neut # (Auto) 7.3, Lymph # (Auto) 1.2, [place] # (Auto) 0.9, Eos # (Auto) 0.1, Baso # (Auto) 0.0, Sodium 137, Potassium 3.5, Chloride 101, Carbon Dioxide 31 H, Anion Gap 8.5, BUN 3 L, Creatinine 0.50 L, Estimated Creat Clear 38, Estimated GFR 125, Est GFR ( Amer) 151, Glucose 101 H D, Calcium 8.2 L, Magnesium 1.6 D, Total Bilirubin 0.6, AST 19, ALT 10 L, Alkaline Phosphatase 76, C-Reactive Protein 108.3 H, Total Protein 5.7 L D, Albumin 3.0 L D, Globulin 2.7, Albumin/Globulin Ratio 1.1 I & O for Labs for Last 24 Hours: Intake & Output 03/16/25 03/17/25 03/18/25 03/19/25 23:59 23:59 23:59 23:59 Intake Total 1347.5 / 1347.5 180 / 180 Output Total 0 / 0 0 / 0 Balance 1347.5 / 1347.5 180 / 180 Weight 40.511 kg 41.39 kg Constitutional: Present mild distress, thin, chronically ill appearing and cooperative Head: Present atraumatic and normocephalic ENT: Present normal exam Respiratory: Present normal respiratory effort; Absent rhonchi, wheezes or crackles Cardiac: Present Reg Rate and Rhythm GI: Present soft, tenderness (Moderate to severe in lower abdomen.) and hypoactive bowel sounds; Absent distention, guarding or rebound Extremities: Present normal inspection and full ROM Skin: Present intact; Absent erythema Neuro: Present Grossly Intact, alert, awake, oriented x 3 and moves all extremities Assessment and Plan *Assessment and plan (1) Abdominal abscess: Status: Acute Category: Medical (2) Perforated sigmoid colon: Status: Acute Category: Medical Code(s): K63.1 - Perforation of intestine (nontraumatic) (3) Acute hypokalemia: Status: Acute Category: Medical Code(s): E87.6 - Hypokalemia (4) Diverticulitis: Status: Acute Category: Medical Code(s): K57.92 - Diverticulitis of intestine, part unspecified, without perforation or abscess without bleeding (5) COPD (chronic obstructive pulmonary disease): Status: Chronic Category: Medical Code(s): J44.9 - Chronic obstructive pulmonary disease, unspecified 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 She states she has not had a bowel movement in several days, and thinks is likely related to a week, and has been having suprapubic abdominal pain for about a week. She notes she was started on Macrobid for UTI on 03/13 but her urine culture was normal so she discontinued it. He states her abdominal pain is no better after starting Macrobid. Denies nausea/vomiting, back pain, fever/chills, urinary symptoms. She reports ever she has had a cholecystectomy send chronic diarrhea so constipation is new for her. No new medications, dietary changes. She states she does not drink water, solely relies on Pepsi. Workup in the ED significant for WBC 11.7, potassium 2.9, grossly abnormal UA, CT abdomen/pelvis consistent with rectosigmoid colitis with associated developing abscess and large stool burden. Patient denies NSAID use, alcohol. Given these findings, ED provider consulted general surgery who recommended medical management at this time with IV antibiotics and reevaluation tomorrow. Surgery evaluated this morning. Recommend serial exams and bowel regimen. Continues to require outpatient management. Problems addressed as coco frey: #Rectosigmoid stercoral colitis #Suspected rectosigmoid perforation # Diverticulitis #Constipation ? Presents with 1 week onset of suprapubic abdominal pain, constipation. ? CT abdomen/pelvis consistent with rectosigmoid colitis with associated developing abscess and large stool burden. ? Discussed case with surgery, recommend initiating bowel regimen with MiraLAX daily. Initiate bisacodyl suppository. Serial exams. - Continue IV Zosyn 3.375 g every 6 hours. ? Tylenol, [place] as needed for pain control but patient prefers Tylenol (sensitive to opioids, apparent family history of anaphylaxis to morphine). Avoid NSAIDs due to possible perforation. Monitor for toxicity ? White count improved to 9.6. Hemoglobin 11.7. CRP improved from 140-108. Repeat CBC, CMP, magnesium ordered for the morning - Continue clear liquid diet at surgery's recommendation ? Blood cultures pending #Hypokalemia ? Initial potassium 2.9, improved to 3.5 this morning. Magnesium low at 1.6. Replace per protocol #COPD ? DuoNebs as needed. Full code DVT prophylaxis: SCDs Clear liquid diet
[2025-03-19 14:05] VITALS: BMI 17.9
--- NOTE | 2025-03-19 15:11 | PC.NURSE ---
Aox 4, up ad suzanna, 20g r hand sl, 20g L AC sl, on abx iv, on RA, consult to surgery, on clears.
[2025-03-19 16:00] VITALS: BP 131/70; PULSE 68; RESP 16; TEMP 36.9; O2SAT 95
[2025-03-19] MEDS: ACETAMINOPHEN 325MG TAB 650 MG PO (16:55)
[2025-03-19 20:00] VITALS: BP 156/67; PULSE 63; RESP 16; TEMP 36.4; O2SAT 95
[2025-03-20] VITALS: BP 138/68; PULSE 72; RESP 16; TEMP 36.8; O2SAT 92
[2025-03-20 04:00] VITALS: BP 138/75; PULSE 82; RESP 16; TEMP 36.8; BMI 17.4
--- NOTE | 2025-03-20 04:05 | PC.NURSE ---
Addendum entered by Anna Rubin RN 03/20/25 05:30: Patient has had *multiple hard-lumped bowel movements this shift. Addendum entered by Anna Rubin RN 03/20/25 05:20: Patient reported feeling nauseous this morning upon awakening; Zofran administered per SEP. Original Note: Patient is alert and oriented x4. She was observed to be resting in bed with eyes closed, respirations even and unlabored on room air, and no apparent distress throughout the majority of the night. Patient has had complaints of lower abdominal pain this shift; the one tablet dose of [place] was administered per SEP for pain relief. She reports passing gas and had a bowel movement this shift, stool consistency reported as pebble-like. Miralax administered per SEP. Patient has been tolerating a clear liquid diet without nausea/vomiting complaints. Abdomen soft upon palpation, tender. Auscultation of her heart, lungs, and bowels within normal findings. She ambulates independently in her room/to the bathroom without difficulties. Electrolyte replacement protocol. At this time, the patient is resting in bed without any further complaints. No new needs thus far. Call light within reach.
[2025-03-20] MEDS: ONDANSETRON 4MG/2ML VIAL 4 MG IV (05:20)
[2025-03-20 05:46] LABS: Hematocrit 37.2 % (37.0-47.0); Hemoglobin 11.8 g/dL (12.2-16.2); Immature Granulocytes % 0.4 %; Mean Corpuscular HGB Conc 31.7 g/dL (31.8-35.4); Mean Corpuscular Hemoglobin 29.4 pg (27.0-31.2); Mean Corpuscular Volume 92.5 fl (81-99); Nucleated Red Blood Cells % 0 %; Platelet Count 242 K/mm3 (142-424); Red Blood Count 4.02 M/mm3 (4.20-5.40); Red Cell Distribution Width-SD 41.4 fL; White Blood Count 11.2 K/mm3 (4.8-10.8)
[2025-03-20 05:53] LABS: Alanine Aminotransferase 25 U/L (12-78); Albumin Level 3.3 g/dl (3.5-5.0); Albumin/Globulin Ratio 1.1 (1.1-1.8); Alkaline Phosphatase 108 U/L (38-126); Anion Gap 10.4 mEq/L (5-15); Aspartate Amino Transferase 28 U/L (14-36); Bilirubin,Total 0.6 mg/dl (0.2-1.3); Blood Urea Nitrogen 5 mg/dl (7-17); Calcium 8.4 mg/dl (8.4-10.2); Carbon Dioxide 29 mmol/L (22.0-30.0); Chloride 100 mmol/L (98-107); Creatinine Clearance Estimated 37 mL/min (50-200); Creatinine,Serum 0.50 mg/dl (0.52-1.04); Estimated Glomerular Filt Rate 125 ml/min (>60); GFR (African American) 151 ML/MIN (>60); Globulin 2.9 g/dL (1.3-3.2); Glucose 107 mg/dl (74-100); Magnesium 2.0 mg/dl (1.6-2.3); Potassium 4.4 mmoL/L (3.5-5.1); Sodium 135 mmol/L (136-145); Total Protein,Serum 6.2 g/dl (6.3-8.2)
[2025-03-20 07:37] VITALS: BP 149/87; PULSE 80; RESP 18; TEMP 36.9; O2SAT 93
[2025-03-20] MEDS: HYDROCODONE/APAP 5/325 MG TABLET 1 TAB PO ×3 (07:39→19:57)
--- NOTE | 2025-03-20 07:46 | EXP.ACUTE.PN ---
Subjective *Date: 03/20/25 *Time: 11:34 Interval history: Feeling little bit better today. Discussed transitioning antibiotics. No further bowel movements since yesterday morning. Afebrile. No nausea or vomiting. Medical Exam Vital signs and Labs for Last 24 Hours: Vital Signs Temp Pulse Pulse Resp BP Pulse Ox O2 Del Method 03/20/25 07:37 98.5 F 80 18 149/87 H 93 L Room Air 03/20/25 06:40 Room Air 03/20/25 05:00 Room Air 03/20/25 04:00 98.3 F 82 16 138/75 03/20/25 03:00 Room Air 03/20/25 01:00 Room Air 03/20/25 00:00 98.3 F 72 16 138/68 92 L Room Air 03/19/25 23:00 Room Air 03/19/25 21:00 Room Air 03/19/25 20:00 Room Air 03/19/25 20:00 97.6 F 63 16 156/67 H 95 Room Air 03/19/25 18:12 Room Air 03/19/25 16:00 98.4 F 68 16 131/70 95 Room Air 03/19/25 15:00 Room Air 03/19/25 11:36 97.9 F 60 18 124/68 91 L Room Air 03/19/25 10:21 Room Air 03/19/25 08:56 Room Air 03/19/25 08:00 Room Air 03/19/25 08:00 98.7 F 78 18 140/71 92 L Room Air Intake and Output 03/19/25 03/19/25 03/20/25 15:59 23:59 07:59 Intake Total 390 / 990 270 / 990 300 / 300 Output Total 0 / 0 0 / 0 0 / 0 Balance 390 / 990 270 / 990 300 / 300 Intake: Intake, Oral Amount 240 / 840 270 / 840 300 / 300 Intake, Total IV Amount 150 / 150 Ertapenem Sodium 1 gm In 0.9 % 50 / 50 Sodium Chloride 50 ml @ 100 mls /hr IV Q24H [facility] Rx#:[id number] Magnesium Sulfate in Water 2 gm 100 / 100 In 50 ml @ 50 mls/hr IV Q1H [facility] Rx#:[id number] Output: Output, Urine Amount 0 / 0 0 / 0 0 / 0 Other: Number of Unmeasured Voids 1 1 1 Number of Bowel Movements 1 1 Weight 41.39 kg 40.426 kg Patient Weight 03/20/25 23:59 Weight 40.426 kg Laboratory Results - last 24 hr 03/20/25 05:14: WBC 11.2 H, RBC 4.02 L, Hgb 11.8 L, Hct 37.2, MCV 92.5, MCH 29.4, MCHC 31.7 L, RDW 12.0, Plt Count 242, MPV 9.0, Neut % (Auto) 81.9 H, Lymph % (Auto) 8.5 L, [place] % (Auto) 8.2, Eos % (Auto) 0.7, Baso % (Auto) 0.3, Neut # (Auto) 9.2 H, Lymph # (Auto) 1.0, [place] # (Auto) 0.9, Eos # (Auto) 0.1, Baso # (Auto) 0.0, Sodium 135 L, Potassium 4.4 D, Chloride 100, Carbon Dioxide 29, Anion Gap 10.4, BUN 5 L D, Creatinine 0.50 L, Estimated Creat Clear 37, Estimated GFR 125, Est GFR ( Amer) 151, Glucose 107 H, Calcium 8.4, Magnesium 2.0 D, Total Bilirubin 0.6, AST 28 D, ALT 25 D, Alkaline Phosphatase 108, Total Protein 6.2 L, Albumin 3.3 L, Globulin 2.9, Albumin/Globulin Ratio 1.1 I & O for Labs for Last 24 Hours: Intake & Output 03/17/25 03/18/25 03/19/25 03/20/25 23:59 23:59 23:59 23:59 Intake Total 1347.5 / 1347.5 690 / 990 300 / 300 Output Total 0 / 0 0 / 0 0 / 0 Balance 1347.5 / 1347.5 690 / 990 300 / 300 Weight 40.511 kg 41.39 kg 40.426 kg Microbiology Reports for the Last 24 Hours: Microbiology 03/18/25 20:13 Blood Blood Culture - Preliminary NO GROWTH AFTER 24 HOURS 03/18/25 20:15 Blood Blood Culture - Preliminary NO GROWTH AFTER 24 HOURS Constitutional: Present no acute distress, thin, chronically ill appearing and cooperative Head: Present atraumatic and normocephalic ENT: Present normal exam Respiratory: Present normal respiratory effort; Absent rhonchi, wheezes or crackles Cardiac: Present Reg Rate and Rhythm GI: Present soft, tenderness (Moderate to severe in lower abdomen.) and hypoactive bowel sounds; Absent distention, guarding or rebound Extremities: Present normal inspection and full ROM Skin: Present intact; Absent erythema Neuro: Present Grossly Intact, alert, awake, oriented x 3 and moves all extremities Assessment and Plan *Assessment and plan (1) Abdominal abscess: Status: Acute Category: Medical (2) Perforated sigmoid colon: Status: Deleted Category: Medical Code(s): K63.1 - Perforation of intestine (nontraumatic) (3) Acute hypokalemia: Status: Acute Category: Medical Code(s): E87.6 - Hypokalemia (4) Diverticulitis: Status: Acute Category: Medical Code(s): K57.92 - Diverticulitis of intestine, part unspecified, without perforation or abscess without bleeding (5) COPD (chronic obstructive pulmonary disease): Status: Chronic Category: Medical Code(s): J44.9 - Chronic obstructive pulmonary disease, unspecified 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 She states she has not had a bowel movement in several days, and thinks is likely related to a week, and has been having suprapubic abdominal pain for about a week. She notes she was started on Macrobid for UTI on 03/13 but her urine culture was normal so she discontinued it. He states her abdominal pain is no better after starting Macrobid. Denies nausea/vomiting, back pain, fever/chills, urinary symptoms. She reports ever she has had a cholecystectomy send chronic diarrhea so constipation is new for her. No new medications, dietary changes. She states she does not drink water, solely relies on Pepsi. Workup in the ED significant for WBC 11.7, potassium 2.9, grossly abnormal UA, CT abdomen/pelvis consistent with rectosigmoid colitis with associated developing abscess and large stool burden. Patient denies NSAID use, alcohol. Given these findings, ED provider consulted general surgery who recommended medical management at this time with IV antibiotics and reevaluation tomorrow. Surgery evaluated this morning. Recommend serial exams and bowel regimen. Transition to oral antibiotics. Continues to require outpatient management. Anticipate discharge in the next day or 2. Problems addressed as follows: #Rectosigmoid stercoral colitis #Suspected rectosigmoid perforation # Diverticulitis #Constipation ? Presents with 1 week onset of suprapubic abdominal pain, constipation. ? CT abdomen/pelvis consistent with rectosigmoid colitis with associated developing abscess and large stool burden. ? Discussed case with surgery, recommend continuing bowel regimen with MiraLAX and daily bisacodyl suppository. Transition to oral antibiotics. If doing well in the morning, okay to discharge tomorrow with close follow-up as an outpatient. - Discontinue Zosyn. Initiate Levaquin 750 mg daily IV and metronidazole 500 mg 3 times a day p.o. ? Tylenol, [place] as needed for pain control but patient prefers Tylenol (sensitive to opioids, apparent family history of anaphylaxis to morphine). Avoid NSAIDs due to possible perforation. Monitor for toxicity ? White count stable 11.2, hemoglobin 11.8. Kidney function normal with BUN 5, creatinine 0.5. Repeat CBC, CMP, magnesium ordered for the morning - Continue clear liquid diet at surgery's recommendation ? Blood cultures pending #Hypokalemia ? Initial potassium 2.9, normal this morning at 4.4. Continue replacement per protocol. Magnesium 2.0 #COPD ? DuoNebs as needed. On room air Full code DVT prophylaxis: SCDs Clear liquid diet
--- NOTE | 2025-03-20 08:06 | EXP.SURG.PN ---
Subjective Patient reports: bowel movement Narrative: She states that she is having a little bit more pain because (her) bowels are moving more . She believes that she has continued to overall improve . Exam Data for Last 24 hours Vital signs and Labs for Last 24 Hours: Temp Pulse Resp BP Pulse Ox O2 Del Method 98.5 F 80 18 149/87 H 93 L Room Air 03/20/25 07:37 03/20/25 07:37 03/20/25 07:37 03/20/25 07:37 03/20/25 07:37 03/20/25 07:37 Laboratory Results - last 24 hr 03/20/25 05:14: WBC 11.2 H, RBC 4.02 L, Hgb 11.8 L, Hct 37.2, MCV 92.5, MCH 29.4, MCHC 31.7 L, RDW 12.0, Plt Count 242, MPV 9.0, Neut % (Auto) 81.9 H, Lymph % (Auto) 8.5 L, [place] % (Auto) 8.2, Eos % (Auto) 0.7, Baso % (Auto) 0.3, Neut # (Auto) 9.2 H, Lymph # (Auto) 1.0, [place] # (Auto) 0.9, Eos # (Auto) 0.1, Baso # (Auto) 0.0, Sodium 135 L, Potassium 4.4 D, Chloride 100, Carbon Dioxide 29, Anion Gap 10.4, BUN 5 L D, Creatinine 0.50 L, Estimated Creat Clear 37, Estimated GFR 125, Est GFR ( Amer) 151, Glucose 107 H, Calcium 8.4, Magnesium 2.0 D, Total Bilirubin 0.6, AST 28 D, ALT 25 D, Alkaline Phosphatase 108, Total Protein 6.2 L, Albumin 3.3 L, Globulin 2.9, Albumin/Globulin Ratio 1.1 I & O for Last 24 hours: Intake & Output 03/17/25 03/18/25 03/19/25 03/20/25 11:59 11:59 11:59 11:59 Intake Total 1527.5 / 1527.5 810 / 810 Output Total 0 / 0 0 / 0 Balance 1527.5 / 1527.5 810 / 810 Weight 91 lb 4 oz 89 lb 2 oz Microbiology Reports for the Last 24 Hours: Microbiology 03/18/25 20:13 Blood Blood Culture - Preliminary NO GROWTH AFTER 24 HOURS 03/18/25 20:15 Blood Blood Culture - Preliminary NO GROWTH AFTER 24 HOURS Constitutional Constitutional: no acute distress *Routine Respiratory Exam Respiratory: Absent respiratory distress *Routine Cardiovascular Exam Cardiovascular: Absent tachycardia *Routine Abdominal Exam Abdominal: Present tenderness (Mild to moderate tenderness along lower abdomen/pelvis.) Progress Note: A&P Assessment and plan (1) Diverticulitis: Status: Acute Assessment and plan: Overall, continue to show progress on current therapy. Continue antibiotic coverage. She would likely benefit from alteration of her antibiotics to provide treatment readily-available at discharge. If she continues to improve she will likely be appropriate for discharge within the next 24 to 48 hours with plans for ongoing outpatient follow-up. (2) Abdominal abscess: Status: Acute (3) Acute hypokalemia: Status: Acute (4) COPD (chronic obstructive pulmonary disease): Status: Chronic
[2025-03-20] MEDS: POLYETHYLENE GLYCOL 3350 17 GM PACKET PO ×2 (09:13→19:55)
[2025-03-20] MEDS: BISACODYL 10MG SUPP 10 MG RC (09:14)
[2025-03-20] MEDS: LEVOFLOXACIN/D5W 750 MG/150 ML 750 MG/150 ML PIGGYBACK 100 MG IV (09:14)
[2025-03-20 11:34] VITALS: BP 146/76; PULSE 77; TEMP 36.9; O2SAT 95
[2025-03-20 16:00] VITALS: BP 136/69; PULSE 77; TEMP 36.9; O2SAT 92
--- NOTE | 2025-03-20 17:37 | PC.NURSE ---
Pt is A&OX4. Vital signs stable tolerating room air. IV and PO abx given per SEP. Pt complains of abdominal pain. PRN pain medication given with improvement. Pt states she has had a couple BM's today and they are starting to become more normal for her. Pt tolerating full liquids for dinner. Pt resting sitting up in bed with no further needs voiced at this time. Call light within reach.
[2025-03-20 19:56] VITALS: BP 135/74; PULSE 80; RESP 16; TEMP 36.9; O2SAT 92
--- NOTE | 2025-03-20 20:02 | PC.NURSE ---
patient c/o 12/25 LLQ abd pain, reports pebble-like small bm's, active bowel sounds and tenderness with palpation to the LLQ - tx with norco and gave scheduled medications a few minutes earlier for cluster care.
[2025-03-21] VITALS: BP 133/71; PULSE 80; RESP 16; TEMP 37.1; O2SAT 91
[2025-03-21 04:00] VITALS: BP 143/78; PULSE 85; RESP 16; TEMP 37.2; O2SAT 96; BMI 17.5
[2025-03-21] MEDS: ONDANSETRON 4MG/2ML VIAL 4 MG IV ×3 (05:45→21:22)
[2025-03-21 05:53] LABS: Hematocrit 40.2 % (37.0-47.0); Hemoglobin 12.9 g/dL (12.2-16.2); Immature Granulocytes % 0.7 %; Mean Corpuscular HGB Conc 32.1 g/dL (31.8-35.4); Mean Corpuscular Hemoglobin 29.5 pg (27.0-31.2); Mean Corpuscular Volume 92.0 fl (81-99); Nucleated Red Blood Cells % 0 %; Platelet Count 275 K/mm3 (142-424); Red Blood Count 4.37 M/mm3 (4.20-5.40); Red Cell Distribution Width-SD 41.0 fL; White Blood Count 14.1 K/mm3 (4.8-10.8)
[2025-03-21 06:04] LABS: Alanine Aminotransferase 17 U/L (12-78); Albumin Level 3.4 g/dl (3.5-5.0); Albumin/Globulin Ratio 1.1 (1.1-1.8); Alkaline Phosphatase 134 U/L (38-126); Anion Gap 11.6 mEq/L (5-15); Aspartate Amino Transferase 17 U/L (14-36); Bilirubin,Total 0.5 mg/dl (0.2-1.3); Blood Urea Nitrogen 4 mg/dl (7-17); Calcium 8.4 mg/dl (8.4-10.2); Carbon Dioxide 28 mmol/L (22.0-30.0); Chloride 96 mmol/L (98-107); Creatinine Clearance Estimated 37 mL/min (50-200); Creatinine,Serum 0.60 mg/dl (0.52-1.04); Estimated Glomerular Filt Rate 101 ml/min (>60); GFR (African American) 122 ML/MIN (>60); Globulin 3.1 g/dL (1.3-3.2); Glucose 122 mg/dl (74-100); Magnesium 1.8 mg/dl (1.6-2.3); Potassium 3.6 mmoL/L (3.5-5.1); Sodium 132 mmol/L (136-145); Total Protein,Serum 6.5 g/dl (6.3-8.2)
[2025-03-21 07:54] VITALS: BP 145/85; PULSE 90; RESP 16; TEMP 36.9; O2SAT 95
[2025-03-21] MEDS: POLYETHYLENE GLYCOL 3350 17 GM PACKET PO ×2 (09:15→20:16)
[2025-03-21] MEDS: BISACODYL 10MG SUPP 10 MG RC (09:18)
--- NOTE | 2025-03-21 11:16 | P.PN_ITS ---
Subjective *Date: 03/21/25 *Time: 11:16 Interval history: Mild increase in this morning. Still having bowel movements. Placed for hard pellety bowel movements over the past 24 hours. Nausea this morning with 1 small episode of emesis. Afebrile. Stable on room air. No diarrhea. Patricia ating full liquids. Medical Exam Vital signs and Labs for Last 24 Hours: Vital Signs Temp Pulse Resp BP Pulse Ox O2 Del Method 03/21/25 07:56 Room Air 03/21/25 07:54 98.5 F 90 16 145/85 H 95 Room Air 03/21/25 06:34 Room Air 03/21/25 05:00 Room Air 03/21/25 04:00 99.0 F 85 16 143/78 H 96 Room Air 03/21/25 03:00 Room Air 03/21/25 01:00 Room Air 03/21/25 00:00 98.7 F 80 16 133/71 91 L Room Air 03/20/25 23:00 Room Air 03/20/25 21:00 Room Air 03/20/25 20:00 Room Air 03/20/25 19:56 98.5 F 80 16 135/74 92 L Room Air 03/20/25 18:46 Room Air 03/20/25 17:00 Room Air 03/20/25 16:00 98.4 F 77 136/69 92 L Room Air 03/20/25 15:00 Room Air 03/20/25 13:00 Room Air 03/20/25 11:34 98.5 F 77 146/76 H 95 Room Air Intake and Output 03/20/25 03/21/25 03/21/25 23:59 07:59 15:59 Intake Total 250 / 1180 120 / 120 Output Total 0 / 0 0 / 0 Balance 250 / 1180 120 / 120 Intake: Intake, Oral Amount 240 / 1020 120 / 120 Intake, Other Amount 10 / 10 Output: Output, Urine Amount 0 / 0 0 / 0 Other: Intake, Other Source Saline Solution Number of Unmeasured Voids 1 1 Number of Bowel Movements 1 Weight 40.46 kg Patient Weight 03/21/25 23:59 Weight 40.46 kg Laboratory Results - last 24 hr 03/21/25 05:26: WBC 14.1 H D, RBC 4.37, Hgb 12.9, Hct 40.2, MCV 92.0, MCH 29.5, MCHC 32.1, RDW 12.0, Plt Count 275, MPV 8.7, Neut % (Auto) 83.5 H, Lymph % (Auto) 7.1 L, [place] % (Auto) 8.3, Eos % (Auto) 0.1, Baso % (Auto) 0.3, Neut # (Auto) 11.8 H, Lymph # (Auto) 1.0, [place] # (Auto) 1.2 H, Eos # (Auto) 0.0, Baso # (Auto) 0.0, Sodium 132 L, Potassium 3.6, Chloride 96 L, Carbon Dioxide 28, Anion Gap 11.6, BUN 4 L, Creatinine 0.60, Estimated Creat Clear 37, Estimated GFR 101, Est GFR ( Amer) 122, Glucose 122 H, Calcium 8.4, Magnesium 1.8, Total Bilirubin 0.5, AST 17 D, ALT 17 D, Alkaline Phosphatase 134 H, Total Protein 6.5, Albumin 3.4 L, Globulin 3.1, Albumin/Globulin Ratio 1.1 I & O for Labs for Last 24 Hours: Intake & Output 03/18/25 03/19/25 03/20/25 03/21/25 23:59 23:59 23:59 23:59 Intake Total 1347.5 / 1347.5 1689 1060 / 1180 120 / 120 Output Total 0 / 0 0 / 0 0 / 0 0 / 0 Balance 1347.5 / 1347.5 1689 1060 / 1180 120 / 120 Weight 40.511 kg 41.39 kg 40.426 kg 40.46 kg Microbiology Reports for the Last 24 Hours: Microbiology 03/18/25 20:13 Blood Blood Culture - Preliminary NO GROWTH AFTER 48 HOURS 03/18/25 20:15 Blood Blood Culture - Preliminary NO GROWTH AFTER 48 HOURS Constitutional: Present no acute distress, thin, chronically ill appearing and cooperative Head: Present atraumatic and normocephalic ENT: Present normal exam Respiratory: Present normal respiratory effort; Absent rhonchi, wheezes or crackles Cardiac: Present Reg Rate and Rhythm GI: Present soft, tenderness (Moderate to severe in lower abdomen; slight increase from yesterday.) and normal bowel sounds; Absent distention, guarding or rebound Extremities: Present normal inspection and full ROM Skin: Present intact; Absent erythema Neuro: Present Grossly Intact, alert, awake, oriented x 3 and moves all extremities Assessment and Plan *Assessment and plan (1) Abdominal abscess: Status: Acute Category: Medical (2) Perforated sigmoid colon: Status: Deleted Category: Medical Code(s): K63.1 - Perforation of intestine (nontraumatic) (3) Acute hypokalemia: Status: Acute Category: Medical Code(s): E87.6 - Hypokalemia (4) Diverticulitis: Status: Acute Category: Medical Code(s): K57.92 - Diverticulitis of intestine, part unspecified, without perforation or abscess without bleeding (5) COPD (chronic obstructive pulmonary disease): Status: Chronic Category: Medical Code(s): J44.9 - Chronic obstructive pulmonary disease, unspecified 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 She states she has not had a bowel movement in several days, and thinks is likely related to a week, and has been having suprapubic abdominal pain for about a week. She notes she was started on Macrobid for UTI on 03/13 but her urine culture was normal so she discontinued it. He states her abdominal pain is no better after starting Macrobid. Denies nausea/vomiting, back pain, fever/chills, urinary symptoms. She reports ever she has had a cholecystectomy send chronic diarrhea so constipation is new for her. No new medications, dietary changes. She states she does not drink water, solely relies on Pepsi. Workup in the ED significant for WBC 11.7, potassium 2.9, grossly abnormal UA, CT abdomen/pelvis consistent with rectosigmoid colitis with associated developing abscess and large stool burden. Patient denies NSAID use, alcohol. Given these findings, ED provider consulted general surgery who recommended medical management at this time with IV antibiotics and reevaluation tomorrow. Surgery evaluated this morning. Recommend serial exams and bowel regimen. Transition to oral antibiotics. Continues to require outpatient management. Anticipate discharge in the next day or 2. Problems addressed as follows: #Rectosigmoid stercoral colitis #Suspected rectosigmoid perforation # Diverticulitis #Constipation ? Presents with 1 week onset of suprapubic abdominal pain, constipation. ? CT abdomen/pelvis consistent with rectosigmoid colitis with associated developing abscess and large stool burden. ? Discussed case with surgery, recommend continuing bowel regimen with MiraLAX and daily bisacodyl suppository. Tolerating Levaquin and Flagyl, renally dosed. Continue Levaquin 750 mg every 48 hours IV with Flagyl 500 mg 3 times a day ? Tylenol, [place] as needed for pain control but patient prefers Tylenol (sensitive to opioids, apparent family history of anaphylaxis to morphine). Avoid NSAIDs due to possible perforation. Monitor for toxicity ? White count with slight bump to 14. Hemoglobin 12.9. Kidney function stable with BUN 4, creatinine 0.6. Creatinine clearance less than 50 however. Repeat CBC, CMP, Mg ordered for morning - Continue full liquid diet ? Blood cultures remain negative #Hypokalemia: Initial potassium 2.9; continue to be stable. 3.6 this morning with magnesium 1.8. Replace per protocol #COPD: DuoNebs as needed. On room air Full code DVT prophylaxis: SCDs Full liquid diet
[2025-03-21 12:00] VITALS: BP 121/67; PULSE 78; RESP 18; TEMP 36.7; O2SAT 95
--- NOTE | 2025-03-21 14:37 | EXP.SURG.PN ---
Subjective Patient reports: still having pain Narrative: She believes her pain is a little worse . She states that she is no longer really having bowel movements like before . Exam Data for Last 24 hours Vital signs and Labs for Last 24 Hours: Temp Pulse Resp BP Pulse Ox O2 Del Method 98.0 F 78 18 121/67 95 Room Air 03/21/25 12:00 03/21/25 12:00 03/21/25 12:00 03/21/25 12:00 03/21/25 12:00 03/21/25 13:59 Laboratory Results - last 24 hr 03/21/25 05:26: WBC 14.1 H D, RBC 4.37, Hgb 12.9, Hct 40.2, MCV 92.0, MCH 29.5, MCHC 32.1, RDW 12.0, Plt Count 275, MPV 8.7, Neut % (Auto) 83.5 H, Lymph % (Auto) 7.1 L, [place] % (Auto) 8.3, Eos % (Auto) 0.1, Baso % (Auto) 0.3, Neut # (Auto) 11.8 H, Lymph # (Auto) 1.0, [place] # (Auto) 1.2 H, Eos # (Auto) 0.0, Baso # (Auto) 0.0, Sodium 132 L, Potassium 3.6, Chloride 96 L, Carbon Dioxide 28, Anion Gap 11.6, BUN 4 L, Creatinine 0.60, Estimated Creat Clear 37, Estimated GFR 101, Est GFR ( Amer) 122, Glucose 122 H, Calcium 8.4, Magnesium 1.8, Total Bilirubin 0.5, AST 17 D, ALT 17 D, Alkaline Phosphatase 134 H, Total Protein 6.5, Albumin 3.4 L, Globulin 3.1, Albumin/Globulin Ratio 1.1 I & O for Last 24 hours: Intake & Output 03/19/25 03/20/25 03/21/25 03/22/25 11:59 11:59 11:59 11:59 Intake Total 2527.5 / 2527.5 1080 / 1080 610 / 610 Output Total 0 / 0 0 / 0 0 / 0 Balance 2527.5 / 2527.5 1080 / 1080 610 / 610 Weight 91 lb 4 oz 89 lb 2 oz 89 lb 3.2 oz Microbiology Reports for the Last 24 Hours: Microbiology 03/18/25 20:13 Blood Blood Culture - Preliminary NO GROWTH AFTER 48 HOURS 03/18/25 20:15 Blood Blood Culture - Preliminary NO GROWTH AFTER 48 HOURS Constitutional Constitutional: no acute distress *Routine Respiratory Exam Respiratory: Absent respiratory distress *Routine Cardiovascular Exam Cardiovascular: Absent tachycardia *Routine Abdominal Exam Abdominal: Present tenderness (Persistent tenderness noted); Absent rebound or guarding Progress Note: A&P Assessment and plan (1) Diverticulitis: Status: Acute Assessment and plan: Intermittent increased pain and alternating bowel function noted. She is slight worsening of leukocytosis also noted. The patient remains afebrile with stable and normal vital signs and does not have evidence of peritonitis. No need for emergent intervention (procedural or operative) Continue antibiotics (may require alteration of antibiotics in near future) Would hold off on early repeat CT scan for now; however, delayed repeat CT with possible intervention (drain placement, etc.) possible in near future (2) Abdominal abscess: Status: Acute (3) COPD (chronic obstructive pulmonary disease): Status: Chronic
[2025-03-21 16:00] VITALS: BP 152/78; PULSE 81; RESP 16; TEMP 36.8; O2SAT 94
[2025-03-21] MEDS: HYDROCODONE/APAP 5/325 MG TABLET 1 TAB PO ×2 (16:37→21:22)
[2025-03-21 20:00] VITALS: BP 130/94; PULSE 75; RESP 16; TEMP 36.8; O2SAT 96
[2025-03-22] VITALS (7 sets, daily range): BP systolic 106–143; BP diastolic 49–74; PULSE 69–83; RESP 12–17; TEMP 36.6–36.9; O2SAT 91–95; BMI 17.7
[2025-03-22 06:19] LABS: Alanine Aminotransferase 16 U/L (12-78); Albumin Level 3.2 g/dl (3.5-5.0); Albumin/Globulin Ratio 1.1 (1.1-1.8); Alkaline Phosphatase 110 U/L (38-126); Anion Gap 12.5 mEq/L (5-15); Aspartate Amino Transferase 20 U/L (14-36); Bilirubin,Total 0.5 mg/dl (0.2-1.3); Blood Urea Nitrogen 8 mg/dl (7-17); Calcium 8.4 mg/dl (8.4-10.2); Carbon Dioxide 30 mmol/L (22.0-30.0); Chloride 94 mmol/L (98-107); Creatinine Clearance Estimated 37 mL/min (50-200); Creatinine,Serum 0.70 mg/dl (0.52-1.04); Estimated Glomerular Filt Rate 85 ml/min (>60); GFR (African American) 102 ML/MIN (>60); Globulin 3.0 g/dL (1.3-3.2); Glucose 121 mg/dl (74-100); Magnesium 1.9 mg/dl (1.6-2.3); Potassium 3.5 mmoL/L (3.5-5.1); Sodium 133 mmol/L (136-145); Total Protein,Serum 6.2 g/dl (6.3-8.2)
[2025-03-22] MEDS: HYDROCODONE/APAP 5/325 MG TABLET 1 TAB PO ×2 (06:30→15:59)
[2025-03-22 06:31] LABS: Hematocrit 38.9 % (37.0-47.0); Hemoglobin 12.9 g/dL (12.2-16.2); Immature Granulocytes % 0.4 %; Mean Corpuscular HGB Conc 33.2 g/dL (31.8-35.4); Mean Corpuscular Hemoglobin 30.1 pg (27.0-31.2); Mean Corpuscular Volume 90.9 fl (81-99); Nucleated Red Blood Cells % 0 %; Platelet Count 321 K/mm3 (142-424); Red Blood Count 4.28 M/mm3 (4.20-5.40); Red Cell Distribution Width-SD 40.5 fL; White Blood Count 13.4 K/mm3 (4.8-10.8)
--- NOTE | 2025-03-22 06:41 | EXP.SURG.PN ---
Subjective Narrative: Patient states that she feels worse today. Complains mainly of pain from having belching. On oral Flagyl. She wonders if the oral Flagyl is upsetting her stomach. Exam Data for Last 24 hours Vital signs and Labs for Last 24 Hours: Temp Pulse Resp BP Pulse Ox O2 Del Method 98.1 F 76 16 143/74 H 94 L Room Air 03/22/25 04:00 03/22/25 04:00 03/22/25 04:00 03/22/25 04:00 03/22/25 04:00 03/22/25 06:38 Laboratory Results - last 24 hr 03/22/25 05:26: Sodium 133 L, Potassium 3.5, Chloride 94 L, Carbon Dioxide 30, Anion Gap 12.5, BUN 8 D, Creatinine 0.70, Estimated Creat Clear 37, Estimated GFR 85, Est GFR ( Amer) 102, Glucose 121 H, Calcium 8.4, Magnesium 1.9, Total Bilirubin 0.5, AST 20, ALT 16, Alkaline Phosphatase 110, Total Protein 6.2 L, Albumin 3.2 L, Globulin 3.0, Albumin/Globulin Ratio 1.1 I & O for Last 24 hours: Intake & Output 03/19/25 03/20/25 03/21/25 03/22/25 11:59 11:59 11:59 11:59 Intake Total 2527.5 / 2527.5 1080 / 1080 610 / 610 240 / 240 Output Total 0 / 0 0 / 0 0 / 0 175 / 175 Balance 2527.5 / 2527.5 1080 / 1080 610 / 610 65 / 65 Weight 91 lb 4 oz 89 lb 2 oz 89 lb 3.2 oz 90 lb 8 oz *Routine Abdominal Exam Abdominal: Present soft Comments: Somewhat distended. Tender without guarding or rebound. Progress Note: A&P Assessment and plan (1) Diverticulitis: Status: Acute Assessment and plan: Labs pending. Could need surgical intervention. However unclear if some of her symptoms may be secondary to oral metronidazole. I will switch her to intravenous antibiotics and obtain follow-up CT scan with IV and oral contrast. (2) Abdominal abscess: Status: Acute (3) COPD (chronic obstructive pulmonary disease): Status: Chronic
--- NOTE | 2025-03-22 06:44 | CT_ITS ---
FINAL REPORT TECHNIQUE: Thin section axial images are obtained through the abdomen and pelvis after intravenous contrast. Reconstruction images were obtained from the axial data. Exam was performed using dose reduction techniques. CLINICAL HISTORY: ABDOMINAL PAIN COMPARISON: 03/18/2025 FINDINGS: LUNG BASES: Lung bases are clear. Heart size is normal. LIVER: Homogeneous. No focal lesion. GALLBLADDER/BILIARY SYSTEM: Gallbladder is absent. No gallstones. No biliary dilatation. SPLEEN: Unremarkable. PANCREAS: Unremarkable. ADRENALS: Unremarkable. KIDNEYS/URETERS/BLADDER: No hydronephrosis, renal mass, or renal stone. Unremarkable urinary bladder. GI TRACT: Mildly dilated distal small bowel loops. Normal appendix. There is now rather significant colonic distention with air and fluid. Cecum measures slightly greater than 9 cm and the descending colon measures 4 cm. Wall thickening of the sigmoid colon is worse. Fluid collection along the posterior aspect of the sigmoid colon has increased in size. For example, lateral component measures 4 cm and was 2.7 cm. Continues to be significant inflammatory change of the more proximal sigmoid colon. No free intraperitoneal air. PELVIC ORGANS: Unremarkable for age. LYMPH NODES/RETROPERITONEUM/MESENTERY: Mildly prominent retroperitoneal lymph nodes, likely reactive. No abdominal aortic aneurysm. ABDOMINAL WALL: The abdominal wall is intact. FREE FLUID: No ascites. BONES: No acute osseous abnormality. IMPRESSION: Worsening sigmoid diverticulitis with enlarging abscess along the mid sigmoid colon. More proximal colonic distention with air and fluid, likely related to colitis. Reviewed, Interpreted and Dictated by Cielo Augustin MD Transcribed by Suha Shankar Authenticated and . [facility]
[2025-03-22] MEDS: ONDANSETRON 4MG/2ML VIAL 4 MG IV ×2 (07:53→15:59)
[2025-03-22] MEDS: ERTAPENEM SODIUM 1 GM in 0.9 % SODIUM CHLORIDE 50 ML IV (07:57)
[2025-03-22] MEDS: IOPAMIDOL-370 (76%);100ML BOTTLE 75 ML IV (10:03)
[2025-03-22] MEDS: DIATRIZOATE MEG 66% & DIATRIZOATE NA 10% 30ML UDC 30 ML PO (10:03)
[2025-03-22] MEDS: SODIUM CHLORIDE 0.9% 10ML SYR (RAD ONLY) 10 ML IV (10:03)
--- NOTE | 2025-03-22 12:46 | EXP.SURG.PN ---
Subjective Narrative: Patient feels somewhat better this afternoon since her oral Flagyl has been discontinued and she has had a couple small bowel movements. She did undergo CT scan which reveals some progressive diverticulitis mostly characterized by enlarging abscess along the mid sigmoid colon. There is proximal colonic distention. The fluid collection/abscess now measures 4 cm. Exam Data for Last 24 hours Vital signs and Labs for Last 24 Hours: Temp Pulse Resp BP Pulse Ox O2 Del Method 97.8 F 71 16 133/74 93 L Room Air 03/22/25 11:40 03/22/25 11:40 03/22/25 11:40 03/22/25 11:40 03/22/25 11:40 03/22/25 11:40 Laboratory Results - last 24 hr 03/22/25 05:26: WBC 13.4 H, RBC 4.28, Hgb 12.9, Hct 38.9, MCV 90.9, MCH 30.1, MCHC 33.2, RDW 12.1, Plt Count 321, MPV 8.7, Neut % (Auto) 85.2 H, Lymph % (Auto) 5.9 L, [place] % (Auto) 8.1, Eos % (Auto) 0.1, Baso % (Auto) 0.3, Neut # (Auto) 11.4 H, Lymph # (Auto) 0.8, [place] # (Auto) 1.1 H, Eos # (Auto) 0.0, Baso # (Auto) 0.0, Sodium 133 L, Potassium 3.5, Chloride 94 L, Carbon Dioxide 30, Anion Gap 12.5, BUN 8 D, Creatinine 0.70, Estimated Creat Clear 37, Estimated GFR 85, Est GFR ( Amer) 102, Glucose 121 H, Calcium 8.4, Magnesium 1.9, Total Bilirubin 0.5, AST 20, ALT 16, Alkaline Phosphatase 110, Total Protein 6.2 L, Albumin 3.2 L, Globulin 3.0, Albumin/Globulin Ratio 1.1 I & O for Last 24 hours: Intake & Output 03/20/25 03/21/25 03/22/25 03/23/25 11:59 11:59 11:59 11:59 Intake Total 1080 / 1080 610 / 610 770 / 770 Output Total 0 / 0 0 / 0 175 / 175 Balance 1080 / 1080 610 / 610 595 / 595 Weight 89 lb 2 oz 89 lb 3.2 oz 90 lb 8 oz *Routine Abdominal Exam Abdominal: Present soft Comments: Minimal tenderness Progress Note: A&P Assessment and plan (1) Diverticulitis: Status: Acute Assessment and plan: Patient does have some progressive refractory presumed diverticulitis (although neoplasm cannot be absolutely ruled out). However she does not have diffuse peritonitis or signs of systemic sepsis thus no absolute indication to proceed with emergent laparotomy. I would advocate potential for transfer for possible interventional radiology as this, if successful, would carry much lower morbidity than emergent laparotomy with sigmoid colon resection and end colostomy (Campos's procedure). I did explain to her that she could require resection in the near future, however I feel that at least an attempt at less morbid intervention would be the most appropriate management option. This will require transfer to facility with interventional radiology capabilities and potential colorectal surgery. (2) Abdominal abscess: Status: Acute (3) COPD (chronic obstructive pulmonary disease): Status: Chronic
--- NOTE | 2025-03-22 17:43 | PC.NURSE ---
patient is a/ox4 and remains on room air. patient has been NPO most of shift and is now on a clear liquid diet tolerating well. she has c/o nausea twice and ABD pain once this shift, both treated per MAR. patient stated she has had 4 loose BM this shift. patient states ABD is tender and bowel sounds are active/hypoactive. call light within reach, no further requests at this time.
--- NOTE | 2025-03-22 21:08 | EXP.PN ---
Subjective *Date: 03/23/25 *Time: 09:48 Interval history: Patient states she is feeling better this afternoon, minimal abdominal pain. Having bowel movements. Does not want to go anywhere else other than [facility] for potential IR guided drainage. Exam Data for Last 24 hours Vital signs and Labs for Last 24 Hours: Temp Pulse Resp BP Pulse Ox O2 Del Method 97.9 F 69 17 112/65 91 L Room Air 03/22/25 19:23 03/22/25 19:23 03/22/25 19:23 03/22/25 19:23 03/22/25 19:23 03/22/25 19:23 Laboratory Results - last 24 hr 03/22/25 05:26: WBC 13.4 H, RBC 4.28, Hgb 12.9, Hct 38.9, MCV 90.9, MCH 30.1, MCHC 33.2, RDW 12.1, Plt Count 321, MPV 8.7, Neut % (Auto) 85.2 H, Lymph % (Auto) 5.9 L, [place] % (Auto) 8.1, Eos % (Auto) 0.1, Baso % (Auto) 0.3, Neut # (Auto) 11.4 H, Lymph # (Auto) 0.8, [place] # (Auto) 1.1 H, Eos # (Auto) 0.0, Baso # (Auto) 0.0, Sodium 133 L, Potassium 3.5, Chloride 94 L, Carbon Dioxide 30, Anion Gap 12.5, BUN 8 D, Creatinine 0.70, Estimated Creat Clear 37, Estimated GFR 85, Est GFR ( Amer) 102, Glucose 121 H, Calcium 8.4, Magnesium 1.9, Total Bilirubin 0.5, AST 20, ALT 16, Alkaline Phosphatase 110, Total Protein 6.2 L, Albumin 3.2 L, Globulin 3.0, Albumin/Globulin Ratio 1.1 I & O for Last 24 hours: Intake & Output 03/19/25 03/20/25 03/21/25 03/22/25 23:59 23:59 23:59 23:59 Intake Total 1689 1060 / 1180 120 / 360 1070 / 1070 Output Total 0 / 0 0 / 0 0 / 0 175 / 175 Balance 1689 1060 / 1180 120 / 360 895 / 895 Weight 41.39 kg 40.426 kg 40.46 kg 41.05 kg Microbiology Reports for the Last 24 Hours: Microbiology 03/18/25 20:15 Blood Blood Culture - Preliminary NO GROWTH AFTER 4 DAYS 03/18/25 20:13 Blood Blood Culture - Preliminary NO GROWTH AFTER 4 DAYS Constitutional Constitutional: no acute distress *Routine HEENT Exam Head: Present normocephalic Eye: Present EOMI and PERRL ENT: Present mucous membranes moist *Routine Neck Exam Neck: Present supple; Absent lymphadenopathy *Routine Respiratory Exam Respiratory: Present CTA bilaterally *Routine Cardiovascular Exam Cardiovascular: Present RRR *Routine Abdominal Exam Abdominal: Present soft Comments: Minimal tenderness *Routine Extremities Exam Extremities: Absent cyanosis, clubbing or edema *Routine Skin Exam Skin: Present warm; Absent rash *Routine Neurological Exam Neurological: Present alert and oriented X3 Assessment and Plan *Assessment and plan (1) Abdominal abscess: Status: Acute Category: Medical (2) Perforated sigmoid colon: Status: Deleted Category: Medical Code(s): K63.1 - Perforation of intestine (nontraumatic) (3) Acute hypokalemia: Status: Acute Category: Medical Code(s): E87.6 - Hypokalemia (4) Diverticulitis: Status: Acute Category: Medical Code(s): K57.92 - Diverticulitis of intestine, part unspecified, without perforation or abscess without bleeding (5) COPD (chronic obstructive pulmonary disease): Status: Chronic Category: Medical Code(s): J44.9 - Chronic obstructive pulmonary disease, unspecified 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 She states she has not had a bowel movement in several days, and thinks is likely related to a week, and has been having suprapubic abdominal pain for about a week. She notes she was started on Macrobid for UTI on 03/13 but her urine culture was normal so she discontinued it. He states her abdominal pain is no better after starting Macrobid. Denies nausea/vomiting, back pain, fever/chills, urinary symptoms. She reports ever she has had a cholecystectomy send chronic diarrhea so constipation is new for her. No new medications, dietary changes. She states she does not drink water, solely relies on Pepsi. Workup in the ED significant for WBC 11.7, potassium 2.9, grossly abnormal UA, CT abdomen/pelvis consistent with rectosigmoid colitis with associated developing abscess and large stool burden. Patient denies NSAID use, alcohol. #Rectosigmoid diverticulitis #Suspected rectosigmoid perforation #Constipation ? Presented with 1 week onset of suprapubic abdominal pain, constipation. ? CT abdomen/pelvis on 03/18/2025 consistent with rectosigmoid colitis with associated developing abscess and large stool burden. ? Initially treated with Zosyn, then levofloxacin and metronidazole. ? Discussed with general surgery, repeated CT abdomen/pelvis which showed worsening diverticulitis with enlarging associated abscess. Agreed to switch antibiotics to meropenem. ? Extensive discussed with general surgery and patient, will attempt to transfer to [facility] for IR guided drainage of abscess versus partial colectomy with colostomy. Patient does not want to be transferred anywhere else. ? Tylenol, [place] as needed for pain control but patient prefers Tylenol (sensitive to opioids, apparent family history of anaphylaxis to morphine). Avoid NSAIDs due to possible perforation. Monitor for toxicity ? White count down to 13.2 today. CRP pending. - Continue clear liquid diet ? Blood cultures remain negative #COPD: DuoNebs as needed. On room air Full code DVT prophylaxis: SCDs Clear liquid diet
[2025-03-22] MEDS: MEROPENEM 1 GM in 0.9 % SODIUM CHLORIDE 100 ML IV (22:15)
--- NOTE | 2025-03-23 03:01 | PC.NURSE ---
Pt AOx4, pleasant. Continually denies pain or any additional needs throughout shift. Currently resting in bed with eyes closed. Respirations even and unlabored. Bed is low, locked, and call light is in reach.
[2025-03-23 04:00] VITALS: BP 113/62; PULSE 73; RESP 12; TEMP 36.8; O2SAT 95; BMI 17.7
[2025-03-23 07:20] LABS: Hematocrit 38.3 % (37.0-47.0); Hemoglobin 12.0 g/dL (12.2-16.2); Immature Granulocytes % 0.3 %; Mean Corpuscular HGB Conc 31.3 g/dL (31.8-35.4); Mean Corpuscular Hemoglobin 29.1 pg (27.0-31.2); Mean Corpuscular Volume 92.7 fl (81-99); Nucleated Red Blood Cells % 0 %; Platelet Count 327 K/mm3 (142-424); Red Blood Count 4.13 M/mm3 (4.20-5.40); Red Cell Distribution Width-SD 42.1 fL; White Blood Count 8.8 K/mm3 (4.8-10.8)
[2025-03-23 07:43] LABS: Alanine Aminotransferase 12 U/L (12-78); Albumin Level 3.0 g/dl (3.5-5.0); Albumin/Globulin Ratio 1.0 (1.1-1.8); Alkaline Phosphatase 93 U/L (38-126); Anion Gap 9.5 mEq/L (5-15); Aspartate Amino Transferase 18 U/L (14-36); Bilirubin,Total 0.4 mg/dl (0.2-1.3); Blood Urea Nitrogen 8 mg/dl (7-17); Calcium 8.0 mg/dl (8.4-10.2); Carbon Dioxide 34 mmol/L (22.0-30.0); Chloride 95 mmol/L (98-107); Creatinine Clearance Estimated 37 mL/min (50-200); Creatinine,Serum 0.70 mg/dl (0.52-1.04); Estimated Glomerular Filt Rate 85 ml/min (>60); GFR (African American) 102 ML/MIN (>60); Globulin 2.9 g/dL (1.3-3.2); Glucose 109 mg/dl (74-100); Potassium 3.5 mmoL/L (3.5-5.1); Sodium 135 mmol/L (136-145); Total Protein,Serum 5.9 g/dl (6.3-8.2)
[2025-03-23 07:48] LABS: Magnesium 1.9 mg/dl (1.6-2.3)
[2025-03-23 07:49] LABS: C-Reactive Protein 77.8 mg/L (0-4)
[2025-03-23 08:00] VITALS: BP 126/62; PULSE 65; RESP 16; TEMP 36.8; O2SAT 91
[2025-03-23] MEDS: MEROPENEM 1 GM in 0.9 % SODIUM CHLORIDE 100 ML IV ×2 (08:56→20:00)
[2025-03-23] MEDS: POTASSIUM CHLORIDE 20MEQ TAB 40 MEQ PO ×2 (09:27→13:31)
[2025-03-23 12:00] VITALS: BP 131/67; PULSE 76; RESP 17; TEMP 36.7; O2SAT 93
--- NOTE | 2025-03-23 14:59 | P.PN_ITS ---
Subjective Narrative: Reports feeling much better today. She has had less nausea and less pain than yesterday. She is tolerating full liquid diet. She has passed bowel movement and flatus since her CT scan. Exam Data for Last 24 hours Vital signs and Labs for Last 24 Hours: Temp Pulse Resp BP Pulse Ox O2 Del Method 98.0 F 76 17 131/67 93 L Room Air 03/23/25 12:00 03/23/25 12:00 03/23/25 12:00 03/23/25 12:00 03/23/25 12:00 03/23/25 14:18 Laboratory Results - last 24 hr 03/23/25 07:02: WBC 8.8 D, RBC 4.13 L, Hgb 12.0 L, Hct 38.3, MCV 92.7, MCH 29.1, MCHC 31.3 L, RDW 12.3, Plt Count 327, MPV 8.4, Neut % (Auto) 73.5, Lymph % (Auto) 14.7, [place] % (Auto) 9.7 H, Eos % (Auto) 1.3, Baso % (Auto) 0.5, Neut # (Auto) 6.5, Lymph # (Auto) 1.3, [place] # (Auto) 0.9, Eos # (Auto) 0.1, Baso # (Auto) 0.0, Sodium 135 L, Potassium 3.5, Chloride 95 L, Carbon Dioxide 34 H, Anion Gap 9.5, BUN 8, Creatinine 0.70, Estimated Creat Clear 37, Estimated GFR 85, Est GFR ( Amer) 102, Glucose 109 H, Calcium 8.0 L, Magnesium 1.9, Total Bilirubin 0.4, AST 18, ALT 12, Alkaline Phosphatase 93, C-Reactive Protein 77.8 H, Total Protein 5.9 L, Albumin 3.0 L, Globulin 2.9, Albumin/Globulin Ratio 1.0 L I & O for Last 24 hours: Intake & Output 03/20/25 03/21/25 03/22/25 03/23/25 23:59 23:59 23:59 23:59 Intake Total 1060 / 1180 120 / 360 1170 / 1170 1130 / 1130 Output Total 0 / 0 0 / 0 175 / 175 0 / 0 Balance 1060 / 1180 120 / 360 995 / 995 1130 / 1130 Weight 89 lb 2 oz 89 lb 3.2 oz 90 lb 8 oz 90 lb 7.996 oz Microbiology Reports for the Last 24 Hours: Microbiology 03/18/25 20:15 Blood Blood Culture - Preliminary NO GROWTH AFTER 4 DAYS 03/18/25 20:13 Blood Blood Culture - Preliminary NO GROWTH AFTER 4 DAYS Constitutional Constitutional: no acute distress *Routine Abdominal Exam Abdominal: Present soft and normoactive bowel sounds; Absent tenderness Comments: Mild distention. Scattered lap scars. No peritonitis, no point tenderness. Progress Note: A&P Assessment and plan (1) Abdominal abscess: Status: Acute Assessment and plan: Continues to have clinical improvement, despite CT scan yesterday showing interval increase in retrosigmoid abscess from diverticulitis. Seem to improved after antibiotic coverage was broadened to meropenem. Afebrile. Leukocytosis has resolved. Continue same management. Discussed with Dr. Madrid, has requested transfer to [facility] [place] for IR drainage of abscess, which would be standard of care and lieu of a much more morbid Tabitha's procedure, but they do not yet have a bed for her. Continue to try for transfer. (2) Perforated sigmoid colon: Status: Deleted (3) Acute hypokalemia: Status: Acute (4) Diverticulitis: Status: Acute (5) COPD (chronic obstructive pulmonary disease): Status: Chronic
--- NOTE | 2025-03-23 15:04 | EXP.PN ---
Subjective *Date: 03/23/25 *Time: 15:04 Interval history: Today, patient feels much better. Minimal to no abdominal pain. Tolerating p.o. intake well. Continues to have bowel movements. Confucianist had capacity yesterday, will try again today. Exam Data for Last 24 hours Vital signs and Labs for Last 24 Hours: Temp Pulse Resp BP Pulse Ox O2 Del Method 98.0 F 76 17 131/67 93 L Room Air 03/23/25 12:03/23/25 12:03/23/25 12:03/23/25 12:03/23/25 12:00 03/23/25 14:18 Laboratory Results - last 24 hr 03/23/25 07:02: WBC 8.8 D, RBC 4.13 L, Hgb 12.0 L, Hct 38.3, MCV 92.7, MCH 29.1, MCHC 31.3 L, RDW 12.3, Plt Count 327, MPV 8.4, Neut % (Auto) 73.5, Lymph % (Auto) 14.7, [place] % (Auto) 9.7 H, Eos % (Auto) 1.3, Baso % (Auto) 0.5, Neut # (Auto) 6.5, Lymph # (Auto) 1.3, [place] # (Auto) 0.9, Eos # (Auto) 0.1, Baso # (Auto) 0.0, Sodium 135 L, Potassium 3.5, Chloride 95 L, Carbon Dioxide 34 H, Anion Gap 9.5, BUN 8, Creatinine 0.70, Estimated Creat Clear 37, Estimated GFR 85, Est GFR ( Amer) 102, Glucose 109 H, Calcium 8.0 L, Magnesium 1.9, Total Bilirubin 0.4, AST 18, ALT 12, Alkaline Phosphatase 93, C-Reactive Protein 77.8 H, Total Protein 5.9 L, Albumin 3.0 L, Globulin 2.9, Albumin/Globulin Ratio 1.0 L I & O for Last 24 hours: Intake & Output 03/20/25 03/21/25 03/22/25 03/23/25 23:59 23:59 23:59 23:59 Intake Total 1060 / 1180 120 / 360 1170 / 1170 1130 / 1130 Output Total 0 / 0 0 / 0 175 / 175 0 / 0 Balance 1060 / 1180 120 / 360 995 / 995 1130 / 1130 Weight 40.426 kg 40.46 kg 41.05 kg 41.05 kg Microbiology Reports for the Last 24 Hours: Microbiology 03/18/25 20:15 Blood Blood Culture - Preliminary NO GROWTH AFTER 4 DAYS 03/18/25 20:13 Blood Blood Culture - Preliminary NO GROWTH AFTER 4 DAYS Constitutional Constitutional: no acute distress *Routine HEENT Exam Head: Present normocephalic Eye: Present EOMI and PERRL ENT: Present mucous membranes moist *Routine Neck Exam Neck: Present supple; Absent lymphadenopathy *Routine Respiratory Exam Respiratory: Present CTA bilaterally *Routine Cardiovascular Exam Cardiovascular: Present RRR *Routine Abdominal Exam Abdominal: Present soft Comments: Minimal tenderness *Routine Extremities Exam Extremities: Absent cyanosis, clubbing or edema *Routine Skin Exam Skin: Present warm; Absent rash *Routine Neurological Exam Neurological: Present alert and oriented X3 Assessment and Plan *Assessment and plan (1) Abdominal abscess: Status: Acute Category: Medical (2) Perforated sigmoid colon: Status: Deleted Category: Medical Code(s): K63.1 - Perforation of intestine (nontraumatic) (3) Acute hypokalemia: Status: Acute Category: Medical Code(s): E87.6 - Hypokalemia (4) Diverticulitis: Status: Acute Category: Medical Code(s): K57.92 - Diverticulitis of intestine, part unspecified, without perforation or abscess without bleeding (5) COPD (chronic obstructive pulmonary disease): Status: Chronic Category: Medical Code(s): J44.9 - Chronic obstructive pulmonary disease, unspecified 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 She states she has not had a bowel movement in several days, and thinks is likely related to a week, and has been having suprapubic abdominal pain for about a week. She notes she was started on Macrobid for UTI on 03/13 but her urine culture was normal so she discontinued it. He states her abdominal pain is no better after starting Macrobid. Denies nausea/vomiting, back pain, fever/chills, urinary symptoms. She reports ever she has had a cholecystectomy send chronic diarrhea so constipation is new for her. No new medications, dietary changes. She states she does not drink water, solely relies on Pepsi. Workup in the ED significant for WBC 11.7, potassium 2.9, grossly abnormal UA, CT abdomen/pelvis consistent with rectosigmoid colitis with associated developing abscess and large stool burden. Patient denies NSAID use, alcohol. #Rectosigmoid diverticulitis #Suspected rectosigmoid perforation #Constipation ? Presented with 1 week onset of suprapubic abdominal pain, constipation. ? CT abdomen/pelvis on 03/18/2025 consistent with rectosigmoid colitis with associated developing abscess and large stool burden. ? Initially treated with Zosyn, then levofloxacin and metronidazole. ? General Surgery following, repeated CT abdomen/pelvis on 03/22/2025 which showed worsening diverticulitis with enlarging associated abscess. Agreed to switch antibiotics to meropenem. ? Had extensive discussed with general surgery and patient, attempted to transfer patient to [facility] for drainage however they are at capacity and unable to place patient on wait list due to unpredictability of condition. Patient does not want to go to any other facility. ? Today, patient feels much better. Minimal to no abdominal pain. Tolerating p.o. intake well. Continues to have bowel movements. WBC improved to 8.8, CRP improved to 77. ? Continue IV meropenem 1 g every 12 hours. ? Tylenol, [place] as needed for pain control but patient prefers Tylenol (sensitive to opioids, apparent family history of anaphylaxis to morphine). Avoid NSAIDs due to possible perforation. Monitor for toxicity - Continue full liquid diet. ? Blood cultures remain negative. #COPD: DuoNebs as needed. On room air Full code DVT prophylaxis: SCDs Full liquid diet
--- NOTE | 2025-03-23 15:47 | PC.NURSE ---
Aox4, up ad suzanna, pain meds prn, full liquid diet, 20g L ac sl, on RA, awaiting a bed at [facility].
[2025-03-23 16:00] VITALS: BP 131/85; PULSE 72; RESP 17; TEMP 36.8; O2SAT 97
[2025-03-23 19:53] VITALS: BP 132/68; PULSE 75; RESP 14; TEMP 36.7; O2SAT 93
[2025-03-24] VITALS: BP 128/74; PULSE 67; RESP 12; TEMP 36.8; O2SAT 93
--- NOTE | 2025-03-24 03:22 | PC.NURSE ---
Pt AOx4, plesant. Reports some abdominal tenderness and states she has been having diarrhea. Tolerating full liquids. IV antibiotics. Currently resting in bed with eyes closed. Respirations even and unlabored. Bed is low, locked, and call light is in reach.
[2025-03-24 04:00] VITALS: BP 124/62; PULSE 61; RESP 14; TEMP 36.7; O2SAT 92; BMI 17.7
[2025-03-24 05:57] LABS: Hematocrit 38.5 % (37.0-47.0); Hemoglobin 12.5 g/dL (12.2-16.2); Immature Granulocytes % 0.8 %; Mean Corpuscular HGB Conc 32.5 g/dL (31.8-35.4); Mean Corpuscular Hemoglobin 30.2 pg (27.0-31.2); Mean Corpuscular Volume 93.0 fl (81-99); Nucleated Red Blood Cells % 0 %; Platelet Count 345 K/mm3 (142-424); Red Blood Count 4.14 M/mm3 (4.20-5.40); Red Cell Distribution Width-SD 42.9 fL; White Blood Count 7.9 K/mm3 (4.8-10.8)
[2025-03-24 06:08] LABS: Chloride 101 mmol/L (98-107)
[2025-03-24 06:09] LABS: Albumin Level 3.2 g/dl (3.5-5.0); Potassium 4.1 mmoL/L (3.5-5.1); Sodium 135 mmol/L (136-145)
[2025-03-24 06:11] LABS: Blood Urea Nitrogen 7 mg/dl (7-17); Creatinine Clearance Estimated 37 mL/min (50-200); Creatinine,Serum 0.60 mg/dl (0.52-1.04); Estimated Glomerular Filt Rate 101 ml/min (>60); GFR (African American) 122 ML/MIN (>60)
[2025-03-24 06:12] LABS: Alanine Aminotransferase 10 U/L (12-78); Albumin/Globulin Ratio 1.1 (1.1-1.8); Alkaline Phosphatase 84 U/L (38-126); Anion Gap 7.1 mEq/L (5-15); Aspartate Amino Transferase 20 U/L (14-36); Bilirubin,Total 0.4 mg/dl (0.2-1.3); Calcium 8.6 mg/dl (8.4-10.2); Carbon Dioxide 31 mmol/L (22.0-30.0); Globulin 2.9 g/dL (1.3-3.2); Glucose 110 mg/dl (74-100); Total Protein,Serum 6.1 g/dl (6.3-8.2)
[2025-03-24 06:29] LABS: C-Reactive Protein 44.2 mg/L (0-4)
[2025-03-24 07:39] VITALS: BP 132/76; PULSE 69; RESP 16; TEMP 36.8; O2SAT 94
[2025-03-24 11:53] VITALS: BP 127/61; PULSE 69; RESP 14; TEMP 36.7; O2SAT 93
[2025-03-24] MEDS: MEROPENEM 1 GM in 0.9 % SODIUM CHLORIDE 100 ML IV ×2 (11:58→20:14)
--- NOTE | 2025-03-24 14:29 | EXP.SURG.PN ---
Subjective Narrative: Minimal to no abdominal pain today. She is tolerating a low residue diet since lunch. Passing regular flatus and bowel movements. Overall feeling much better. Exam Data for Last 24 hours Vital signs and Labs for Last 24 Hours: Temp Pulse Resp BP Pulse Ox O2 Del Method 98.0 F 69 14 127/61 93 L Room Air 03/24/25 11:53 03/24/25 11:53 03/24/25 11:53 03/24/25 11:53 03/24/25 11:53 03/24/25 11:53 Laboratory Results - last 24 hr 03/24/25 05:40: WBC 7.9, RBC 4.14 L, Hgb 12.5, Hct 38.5, MCV 93.0, MCH 30.2, MCHC 32.5, RDW 12.5, Plt Count 345, MPV 8.2, Neut % (Auto) 67.8, Lymph % (Auto) 17.4, [place] % (Auto) 11.7 H, Eos % (Auto) 1.9, Baso % (Auto) 0.4, Neut # (Auto) 5.4, Lymph # (Auto) 1.4, [place] # (Auto) 0.9, Eos # (Auto) 0.2, Baso # (Auto) 0.0, Sodium 135 L, Potassium 4.1, Chloride 101, Carbon Dioxide 31 H, Anion Gap 7.1, BUN 7, Creatinine 0.60, Estimated Creat Clear 37, Estimated GFR 101, Est GFR ( Amer) 122, Glucose 110 H, Calcium 8.6, Total Bilirubin 0.4, AST 20, ALT 10 L, Alkaline Phosphatase 84, C-Reactive Protein 44.2 H D, Total Protein 6.1 L, Albumin 3.2 L, Globulin 2.9, Albumin/Globulin Ratio 1.1 I & O for Last 24 hours: Intake & Output 03/21/25 03/22/25 03/23/25 03/24/25 23:59 23:59 23:59 23:59 Intake Total 120 / 360 1170 / 1170 1470 / 1470 460 / 460 Output Total 0 / 0 175 / 175 0 / 0 0 / 0 Balance 120 / 360 995 / 995 1470 / 1470 460 / 460 Weight 89 lb 3.2 oz 90 lb 8 oz 90 lb 7.996 oz 90 lb 7.996 oz Microbiology Reports for the Last 24 Hours: Microbiology 03/18/25 20:15 Blood Blood Culture - Final NO GROWTH AFTER 5 DAYS 03/18/25 20:13 Blood Blood Culture - Final NO GROWTH AFTER 5 DAYS Constitutional Constitutional: no acute distress *Routine Abdominal Exam Abdominal: Present soft and normoactive bowel sounds; Absent tenderness or distended Progress Note: A&P Assessment and plan (1) Abdominal abscess: Status: Acute (2) Perforated sigmoid colon: Status: Deleted (3) Acute hypokalemia: Status: Acute (4) Diverticulitis: Status: Acute Assessment and plan: Clinically improving. No leukocytosis, fever. CRP is downtrending. Had interval CT scan on 03/22/2025 showing interval increase in retrosigmoid abscess from diverticulitis. Seem to improved after antibiotic coverage was broadened to meropenem. Continue same management. Discussed with Dr. Madrid, has requested transfer to [facility] for IR drainage of abscess, which would be standard of care and lieu of a much more morbid Tabitha's procedure, but they do not yet have a bed for her. Continue to try for transfer. (5) COPD (chronic obstructive pulmonary disease): Status: Chronic
[2025-03-24 16:00] VITALS: BP 119/59; PULSE 65; RESP 16; TEMP 36.8; O2SAT 93
--- NOTE | 2025-03-24 16:31 | EXP.PN ---
Subjective *Date: 03/24/25 *Time: 16:31 Interval history: Patient lying in bed comfortably without acute distress. No abdominal pain, having bowel movements. Exam Data for Last 24 hours Vital signs and Labs for Last 24 Hours: Temp Pulse Resp BP Pulse Ox O2 Del Method 98.0 F 69 14 127/61 93 L Room Air 03/24/25 11:53 03/24/25 11:53 03/24/25 11:53 03/24/25 11:53 03/24/25 11:53 03/24/25 15:00 Laboratory Results - last 24 hr 03/24/25 05:40: WBC 7.9, RBC 4.14 L, Hgb 12.5, Hct 38.5, MCV 93.0, MCH 30.2, MCHC 32.5, RDW 12.5, Plt Count 345, MPV 8.2, Neut % (Auto) 67.8, Lymph % (Auto) 17.4, [place] % (Auto) 11.7 H, Eos % (Auto) 1.9, Baso % (Auto) 0.4, Neut # (Auto) 5.4, Lymph # (Auto) 1.4, [place] # (Auto) 0.9, Eos # (Auto) 0.2, Baso # (Auto) 0.0, Sodium 135 L, Potassium 4.1, Chloride 101, Carbon Dioxide 31 H, Anion Gap 7.1, BUN 7, Creatinine 0.60, Estimated Creat Clear 37, Estimated GFR 101, Est GFR ( Amer) 122, Glucose 110 H, Calcium 8.6, Total Bilirubin 0.4, AST 20, ALT 10 L, Alkaline Phosphatase 84, C-Reactive Protein 44.2 H D, Total Protein 6.1 L, Albumin 3.2 L, Globulin 2.9, Albumin/Globulin Ratio 1.1 I & O for Last 24 hours: Intake & Output 03/21/25 03/22/25 03/23/25 03/24/25 23:59 23:59 23:59 23:59 Intake Total 120 / 360 1170 / 1170 1470 / 1470 460 / 460 Output Total 0 / 0 175 / 175 0 / 0 0 / 0 Balance 120 / 360 995 / 995 1470 / 1470 460 / 460 Weight 40.46 kg 41.05 kg 41.05 kg 41.05 kg Microbiology Reports for the Last 24 Hours: Microbiology 03/18/25 20:15 Blood Blood Culture - Final NO GROWTH AFTER 5 DAYS 03/18/25 20:13 Blood Blood Culture - Final NO GROWTH AFTER 5 DAYS Constitutional Constitutional: no acute distress *Routine HEENT Exam Head: Present normocephalic Eye: Present EOMI and PERRL ENT: Present mucous membranes moist *Routine Neck Exam Neck: Present supple; Absent lymphadenopathy *Routine Respiratory Exam Respiratory: Present CTA bilaterally *Routine Cardiovascular Exam Cardiovascular: Present RRR *Routine Abdominal Exam Abdominal: Present soft *Routine Extremities Exam Extremities: Absent cyanosis, clubbing or edema *Routine Skin Exam Skin: Present warm; Absent rash *Routine Neurological Exam Neurological: Present alert and oriented X3 Assessment and Plan *Assessment and plan (1) Abdominal abscess: Status: Acute Category: Medical (2) Perforated sigmoid colon: Status: Deleted Category: Medical Code(s): K63.1 - Perforation of intestine (nontraumatic) (3) Acute hypokalemia: Status: Acute Category: Medical Code(s): E87.6 - Hypokalemia (4) Diverticulitis: Status: Acute Category: Medical Code(s): K57.92 - Diverticulitis of intestine, part unspecified, without perforation or abscess without bleeding (5) COPD (chronic obstructive pulmonary disease): Status: Chronic Category: Medical Code(s): J44.9 - Chronic obstructive pulmonary disease, unspecified 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 She states she has not had a bowel movement in several days, and thinks is likely related to a week, and has been having suprapubic abdominal pain for about a week. She notes she was started on Macrobid for UTI on 03/13 but her urine culture was normal so she discontinued it. He states her abdominal pain is no better after starting Macrobid. Denies nausea/vomiting, back pain, fever/chills, urinary symptoms. She reports ever she has had a cholecystectomy send chronic diarrhea so constipation is new for her. No new medications, dietary changes. She states she does not drink water, solely relies on Pepsi. Workup in the ED significant for WBC 11.7, potassium 2.9, grossly abnormal UA, CT abdomen/pelvis consistent with rectosigmoid colitis with associated developing abscess and large stool burden. Patient denies NSAID use, alcohol. #Rectosigmoid diverticulitis #Suspected rectosigmoid perforation #Constipation ? Presented with 1 week onset of suprapubic abdominal pain, constipation. ? CT abdomen/pelvis on 03/18/2025 consistent with rectosigmoid colitis with associated developing abscess and large stool burden. ? Initially treated with Zosyn, then levofloxacin and metronidazole. ? General Surgery following, repeated CT abdomen/pelvis on 03/22/2025 which showed worsening diverticulitis with enlarging associated abscess. Agreed to switch antibiotics to meropenem. ? Had extensive discussed with general surgery and patient, attempted to transfer patient to [facility] for drainage however they are at capacity and unable to place patient on wait list due to unpredictability of condition. Patient does not want to go to any other facility. ? Patient continue to feel better. Minimal to no abdominal pain. Tolerating p.o. intake well. Continues to have bowel movements. WBC improved to 7.9, CRP improved to 44. ? Continue IV meropenem 1 g every 12 hours. ? Tylenol, [place] as needed for pain control but patient prefers Tylenol (sensitive to opioids, apparent family history of anaphylaxis to morphine). Avoid NSAIDs due to possible perforation. Monitor for toxicity - Advanced diet to low residue diet. ? Blood cultures remain negative. #COPD: DuoNebs as needed. On room air Full code DVT prophylaxis: SCDs Full liquid diet
[2025-03-24 19:28] VITALS: BP 104/57; PULSE 76; TEMP 36.8; O2SAT 96
[2025-03-25] VITALS: BP 117/66; PULSE 63; TEMP 36.8; O2SAT 94
[2025-03-25 04:00] VITALS: BP 110/56; PULSE 69; RESP 14; TEMP 36.6; O2SAT 98; BMI 17.5
[2025-03-25 06:33] LABS: Hematocrit 37.6 % (37.0-47.0); Hemoglobin 12.4 g/dL (12.2-16.2); Immature Granulocytes % 0.7 %; Mean Corpuscular HGB Conc 33.0 g/dL (31.8-35.4); Mean Corpuscular Hemoglobin 30.4 pg (27.0-31.2); Mean Corpuscular Volume 92.2 fl (81-99); Nucleated Red Blood Cells % 0 %; Platelet Count 348 K/mm3 (142-424); Red Blood Count 4.08 M/mm3 (4.20-5.40); Red Cell Distribution Width-SD 42.5 fL; White Blood Count 6.0 K/mm3 (4.8-10.8)
[2025-03-25 06:44] LABS: Alanine Aminotransferase 10 U/L (12-78); Albumin Level 3.0 g/dl (3.5-5.0); Albumin/Globulin Ratio 1.0 (1.1-1.8); Alkaline Phosphatase 73 U/L (38-126); Anion Gap 7.9 mEq/L (5-15); Aspartate Amino Transferase 17 U/L (14-36); Bilirubin,Total 0.6 mg/dl (0.2-1.3); Blood Urea Nitrogen 5 mg/dl (7-17); Calcium 8.1 mg/dl (8.4-10.2); Carbon Dioxide 32 mmol/L (22.0-30.0); Chloride 98 mmol/L (98-107); Creatinine Clearance Estimated 37 mL/min (50-200); Creatinine,Serum 0.60 mg/dl (0.52-1.04); Estimated Glomerular Filt Rate 101 ml/min (>60); GFR (African American) 122 ML/MIN (>60); Globulin 2.9 g/dL (1.3-3.2); Glucose 106 mg/dl (74-100); Potassium 3.9 mmoL/L (3.5-5.1); Sodium 134 mmol/L (136-145); Total Protein,Serum 5.9 g/dl (6.3-8.2)
[2025-03-25 06:49] LABS: C-Reactive Protein 26.5 mg/L (0-4)
[2025-03-25 07:55] VITALS: BP 122/58; PULSE 61; RESP 12; TEMP 36.8; O2SAT 96
--- NOTE | 2025-03-25 08:31 | P.PN_ITS ---
Subjective Narrative: Patient currently essentially asymptomatic. Wonders about potentially discharge. Denies abdominal pain. Bowel function normal. Tolerating low residue diet. Exam Data for Last 24 hours Vital signs and Labs for Last 24 Hours: Temp Pulse Resp BP Pulse Ox O2 Del Method 98.2 F 61 12 122/58 L 96 Room Air 03/25/25 07:55 03/25/25 07:55 03/25/25 07:55 03/25/25 07:55 03/25/25 07:55 03/25/25 07:55 Laboratory Results - last 24 hr 03/25/25 05:34: WBC 6.0, RBC 4.08 L, Hgb 12.4, Hct 37.6, MCV 92.2, MCH 30.4, MCHC 33.0, RDW 12.4, Plt Count 348, MPV 8.5, Neut % (Auto) 61.0, Lymph % (Auto) 22.2, [place] % (Auto) 12.6 H, Eos % (Auto) 3.0, Baso % (Auto) 0.5, Neut # (Auto) 3.7, Lymph # (Auto) 1.3, [place] # (Auto) 0.8, Eos # (Auto) 0.2, Baso # (Auto) 0.0, Sodium 134 L, Potassium 3.9, Chloride 98, Carbon Dioxide 32 H, Anion Gap 7.9, BUN 5 L D, Creatinine 0.60, Estimated Creat Clear 37, Estimated GFR 101, Est GFR ( Amer) 122, Glucose 106 H, Calcium 8.1 L, Total Bilirubin 0.6, AST 17, ALT 10 L, Alkaline Phosphatase 73, C-Reactive Protein 26.5 H D, Total Protein 5.9 L, Albumin 3.0 L, Globulin 2.9, Albumin/Globulin Ratio 1.0 L I & O for Last 24 hours: Intake & Output 03/22/25 03/23/25 03/24/25 03/25/25 11:59 11:59 11:59 11:59 Intake Total 770 / 770 1260 / 1260 610 / 610 920 / 920 Output Total 175 / 175 0 / 0 0 / 0 250 / 250 Balance 595 / 595 1260 / 1260 610 / 610 670 / 670 Weight 90 lb 8 oz 90 lb 7.996 oz 90 lb 7.996 oz 89 lb 6.4 oz *Routine Abdominal Exam Abdominal: Present soft; Absent tenderness Progress Note: A&P Assessment and plan (1) Abdominal abscess: Status: Acute (2) Perforated sigmoid colon: Status: Deleted (3) Acute hypokalemia: Status: Acute (4) Diverticulitis: Status: Acute Assessment and plan: Given her dramatic clinical improvement and normalization of white blood cell count and resolution of symptoms it may be reasonable for discharge home and continued management as outpatient. Given her improvement with meropenem may need PICC line placement and outpatient IV antibiotics (5) COPD (chronic obstructive pulmonary disease): Status: Chronic
[2025-03-25] MEDS: MEROPENEM 1 GM in 0.9 % SODIUM CHLORIDE 100 ML IV (08:48)
--- NOTE | 2025-03-25 10:24 | P.DS_ITS ---
General Admission date:: 03/18/25 Discharge date: 03/25/25 HPI HPI HPI: Patient is a 65-year-old female. 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 She has a history of chronic diarrhea since she had undergone cholecystectomy. She presented to the emergency department with abdominal pain and obstipation for about 1 week. Locates the pain in the suprapubic location. Had been started on Macrobid for UTI but this was discontinued due to a normal urine culture. Evaluation in the emergency department revealed a white blood cell count of 11,700. CT scan revealed thickening of the ly of the descending and rectosigmoid colon consistent with colitis versus diverticulitis. There is air and fluid collection noted adjacent which was read as possible developing abscess. This measures well less than 3 cm. ER physician contacted surgeon on- call for recommendations regarding management. She was admitted for inpatient care. She states that she underwent colonoscopy many years ago. This morning her white blood cell count has normalized. Patient has not had a bowel movement but states that she has been passing a lot of gas. 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 She states she has not had a bowel movement in several days, and thinks is likely related to a week, and has been having suprapubic abdominal pain for about a week. She notes she was started on Macrobid for UTI on 03/13 but her urine culture was normal so she discontinued it. She states her abdominal pain is no better after starting Macrobid. Denies nausea/vomiting, back pain, fever/chills, urinary symptoms. She reports ever she has had a cholecystectomy send chronic diarrhea so constipation is new for her. No new medications, dietary changes. She states she does not drink water, solely relies on Pepsi. Workup in the ED significant for WBC 11.7, potassium 2.9, grossly abnormal UA, CT abdomen/pelvis consistent with rectosigmoid colitis with associated developing abscess and large stool burden. Patient denies NSAID use, alcohol. Initial antibiotic showed response until she was switched to Levaquin Flagyl. Began have increasing white count and worsening pain. Antibiotic switched back to meropenem with improvement. Symptoms defervesced and with almost complete resolution of pain by morning of discharge. Plan for close follow-up with surgery, IV antibiotics, reevaluation for need for interventional radiology placed drain if abscess does not resolve on its own in the coming 1 to 2 weeks. PICC line placed on day of discharge. Will complete 10 days of IV antibiotics. Problems addressed as follows: #Rectosigmoid diverticulitis, present on admission #rectosigmoid perforation, present on admission # Abscess as complication of perforated diverticulum, present on admission #Constipation ? Presented with 1 week onset of suprapubic abdominal pain, constipation. CT abdomen/pelvis on 03/18/2025 consistent with rectosigmoid colitis with associated developing abscess and large stool burden. Initially treated with Zosyn and then was switched to Levaquin and Flagyl. Unfortunately symptoms worsened on Levaquin and Flagyl and was switched back to carbapenems on 03/22. CT abdomen pelvis showed worsening diverticulitis and enlarging associated abscess. 2.7 cm x 4 cm. Extensive discussion with general surgery, attempted transfer to [facility] in [place] for drainage with IR unfortunately they were at capacity. Monitored clinically over the weekend. Patient showed improvement. White count normalized to 6. Abdominal exam showed improvement. CRP improving during admission. 140 on day of admission, improved to 26.5 by day of discharge. Kidney function normal. Given her overall improving and symptoms, will transition to ertapenem to complete 10 days of therapy. Patient to come back as an outpatient for infusions daily. Administer 1 g daily for total of 5 more days to complete 10 days of therapy. PICC line placed on day of discharge. Will follow with surgery within the next week and have repeat imaging. If abscess not resolving, will need referral for IR drain due to size of abscess. - Tolerating p.o. intake. Having bowel movements continue MiraLAX for bowel regimen due to patient's stool burden and constipation. - Blood cultures negative during admission #COPD: DuoNebs as needed. On room air. Continue Airsupra at discharge Total time spent on discharge 32 minutes in counseling, documentation, chart review, and direct care with patient. Exam Data for Last 24 hours Vital signs and Labs for Last 24 Hours: Temp Pulse Resp BP Pulse Ox O2 Del Method 98.2 F 61 12 122/58 L 96 Room Air 03/25/25 07:55 03/25/25 07:55 03/25/25 07:55 03/25/25 07:55 03/25/25 07:55 03/25/25 08:00 Laboratory Results - last 24 hr 03/25/25 05:34: WBC 6.0, RBC 4.08 L, Hgb 12.4, Hct 37.6, MCV 92.2, MCH 30.4, MCHC 33.0, RDW 12.4, Plt Count 348, MPV 8.5, Neut % (Auto) 61.0, Lymph % (Auto) 22.2, Winston % (Auto) 12.6 H, Eos % (Auto) 3.0, Baso % (Auto) 0.5, Neut # (Auto) 3.7, Lymph # (Auto) 1.3, Winston # (Auto) 0.8, Eos # (Auto) 0.2, Baso # (Auto) 0.0, Sodium 134 L, Potassium 3.9, Chloride 98, Carbon Dioxide 32 H, Anion Gap 7.9, BUN 5 L D, Creatinine 0.60, Estimated Creat Clear 37, Estimated GFR 101, Est GFR ( Amer) 122, Glucose 106 H, Calcium 8.1 L, Total Bilirubin 0.6, AST 17, ALT 10 L, Alkaline Phosphatase 73, C-Reactive Protein 26.5 H D, Total Protein 5.9 L, Albumin 3.0 L, Globulin 2.9, Albumin/Globulin Ratio 1.0 L I & O for Last 24 hours: Intake & Output 03/22/25 03/23/25 03/24/25 03/25/25 23:59 23:59 23:59 23:59 Intake Total 1170 / 1170 1470 / 1470 680 / 920 340 / 340 Output Total 175 / 175 0 / 0 0 / 250 250 / 250 Balance 995 / 995 1470 / 1470 680 / 670 90 / 90 Weight 41.05 kg 41.05 kg 41.05 kg 40.551 kg Constitutional Constitutional: no acute distress, thin and cooperative *Routine HEENT Exam Head: Present normocephalic Eye: Present EOMI and PERRL ENT: Present mucous membranes moist *Routine Neck Exam Neck: Present supple; Absent lymphadenopathy *Routine Respiratory Exam Respiratory: Present CTA bilaterally; Absent respiratory distress, rhonchi, stridor, wheezes or crackles *Routine Cardiovascular Exam Cardiovascular: Present RRR *Routine Abdominal Exam Abdominal: Present soft, normoactive bowel sounds and tenderness (Minimal in left lower quadrant, almost completely resolved. Significant improvement from admission); Absent distended or rebound *Routine Rectal Exam Patient deferred: visual exam *Routine Exam Patient deferred: external exam *Routine Extremities Exam Extremities: Absent cyanosis, clubbing or edema *Routine Skin Exam Skin: Present intact and warm; Absent rash *Routine Neurological Exam Neurological: Present alert, oriented X3 and moving all extremities; Absent altered mental status Results Data Completed and Pending Labs on day of discharge: Labs from last 24 hours 03/25/25 05:34 WBC 6.0 RBC 4.08 L Hgb 12.4 Hct 37.6 MCV 92.2 MCH 30.4 MCHC 33.0 RDW 12.4 Plt Count 348 MPV 8.5 Neut % (Auto) 61.0 Lymph % (Auto) 22.2 Winston % (Auto) 12.6 H Eos % (Auto) 3.0 Baso % (Auto) 0.5 Neut # (Auto) 3.7 Lymph # (Auto) 1.3 Winston # (Auto) 0.8 Eos # (Auto) 0.2 Baso # (Auto) 0.0 Sodium 134 L Potassium 3.9 Chloride 98 Carbon Dioxide 32 H Anion Gap 7.9 BUN 5 L D Creatinine 0.60 Estimated Creat Clear 37 Estimated GFR 101 Est GFR ( Amer) 122 Glucose 106 H Calcium 8.1 L Total Bilirubin 0.6 AST 17 ALT 10 L Alkaline Phosphatase 73 C-Reactive Protein 26.5 H D Total Protein 5.9 L Albumin 3.0 L Globulin 2.9 Albumin/Globulin Ratio 1.0 L DS: Diagnosis Discharge Diagnosis (1) Diverticular disease of large intestine with complication: Status: Acute Code(s): K57.30 - Diverticulosis of large intestine without perforation or abscess without bleeding (2) Abdominal abscess: Status: Acute (3) Perforated sigmoid colon: Status: Deleted Code(s): K63.1 - Perforation of intestine (nontraumatic) (4) Acute hypokalemia: Status: Acute Code(s): E87.6 - Hypokalemia (5) COPD (chronic obstructive pulmonary disease): Status: Chronic Code(s): J44.9 - Chronic obstructive pulmonary disease, unspecified Meds Home Medications and Allergies Home Medications ?Medication ?Instructions ?Recorded ?Confirmed ?Type albuterol 90 mcg-budesonide 80 2 inh inhalation DAILY PRN SOA 03/18/25 03/18/25 History mcg/actuation HFA aerosol inhaler (Airsupra) Ertapenem Sodium [Invanz 1gm Vial] 100 mls/hr IV Q24H 03/25/25 Rx 1 gm polyethylene glycol 3350 17 gram 17 g PO DAILYP PRN co nstipation 30 03/25/25 Rx oral powder packet (HealthyLax) days #30 ea New Prescriptions to Start Prescriptions: polyethylene glycol 3350 [HealthyLax] Sammy Sinha Ertapenem Sodium [Invanz 1gm Vial] 1 gm 0.9 % Sodium Chloride [Sod Chlor 0.9% 50mL bag] 50 ml 100 mls/hr IV Q24H Allergies Allergy/AdvReac Type Severity Reaction Status Date / Time amoxicillin (From Augmentin) Allergy Rash Verified 03/19/25 07:17 clavulanic acid (From Allergy Rash Verified 03/19/25 07:17 Augmentin) morphine Allergy Unknown Verified 03/19/25 07:17 allergy reaction Discharge Plan Disposition Patient Disposition: Home, Self-Care Condition: Good Discharge Order Discharge Orders: Discharge Order (Routine); Ordered 03/25/25 Ordered By: Sammy Sinha Follow up Plan Follow up with: Fred Lambert MD [Staff Physician, General Surgery] - 1 week Prescriptions/Medication Reconciliation: New Ertapenem Sodium [Invanz 1gm Vial] 1 GM 0.9 % Sodium Chloride [Sod Chlor 0.9% 50mL bag] 50 ML 100 mls/hr IV Q24H Ordered By: Sammy Sinha MD Last Taken: Unknown polyethylene glycol 3350 [HealthyLax] 17 gram Powder In Packet 17 g PO DAILYP PRN (Reason: constipation) 30 Days Qty: 30 0RF Continued Airsupra 90-80 mcg/actuation Hfa Aerosol Inhaler 2 inh INHALATION DAILY PRN (Reason: SOA) Problem Reconciliation Problems Reviewed?: Yes Patient Discharge Instructions ACTIVITY: Continue current activity DIET: other Additional Instructions: Low fiber/low residue diet Patient Instructions: Low-Fiber/Low-Residue Diet, DI for Chronic Obstructive Pulmonary Disease, DI for Surgical Site Infection, Colon Perforation, Stop Light COPD Print Language: Armenian Providers Primary Care Provider: Provider,Referral Admit Provider: Jay Burdick Attending Provider: aJy Burdick
--- NOTE | 2025-03-25 10:25 | XR_ITS ---
FINAL REPORT CLINICAL HISTORY: Confirm PICC line placement FINDINGS: A single PA view of the chest was obtained. There is no prior exam for comparison. There is a right PICC line with the tip in the SVC. The cardiac and mediastinal silhouettes are within normal limits. The lungs are clear. There is underlying emphysema. There is no effusion or pneumothorax. IMPRESSION: Right PICC line with the tip in the SVC. Underlying emphysema. Reviewed, Interpreted and Dictated by Cielo Augustin MD Transcribed by Tran Sanchez Authenticated and [facility]
--- NOTE | 2025-03-25 13:53 | SW/DCPLANNER ---
Patient plans to return to [facility] outpatient for IV antibiotics.
[2025-03-25] MEDS: ERTAPENEM SODIUM 1 GM in 0.9 % SODIUM CHLORIDE 50 ML IV (15:38)
--- NOTE | 2025-03-26 13:10 | SW/DCPLANNER ---
Spoke with patient on the phone. Patient stated that she is doing good. Patient stated that she is aware of her upcoming appointments. Patient stated that she was able to get her medicine picked up from clinic pharmacy. Patient stated that she has no concerns or questions at this time. True Guillermo
== END 2025-03-25 16:43 | disposition home or self-care (01) | DRG 392 ==
LOC: ER 16:06 → 2ND 19:59
PROVIDERS: Admitting Provider Student in an Organized Health Care Education/Training Program; Emergency Provider Emergency Medicine; Visit Provider Student in an Organized Health Care Education/Training Program
DX: K57.20 Diverticulitis of large intestine with perforation and abscess without bleeding (principal); J44.9 Chronic obstructive pulmonary disease, unspecified; K59.00 Constipation, unspecified; E87.6 Hypokalemia; F17.210 Nicotine dependence, cigarettes, uncomplicated; Z90.49 Acquired absence of other specified parts of digestive tract; Z79.899 Other long term (current) drug therapy; Z88.1 Allergy status to other antibiotic agents; Z88.5 Allergy status to narcotic agent
CPT/HCPCS: 36410; 36415; 36569; 71045; 74177; 80048; 80053; 81001; 83036; 83690; 83735; 84145; 85025; 86140; 87040; 99285; C1751; J0131; J1335; J1956; J2185; J2405; J2543; J3475; J3480; J7120; Q9963; Q9967

== ENCOUNTER 2025-03-26 13:56 | Outpatient (CLI) | payer BC, SELFPAY ==
[2025-03-26] MEDS: ERTAPENEM SODIUM 1 GM in 0.9 % SODIUM CHLORIDE 50 ML IV (14:10)
[2025-03-26 14:15] VITALS: BP 115/70; PULSE 72; RESP 18; O2SAT 96
[2025-03-26] MEDS: 0.9 % SODIUM CHLORIDE 50 ML 100 ML IV (14:15)
[2025-03-26 15:05] VITALS: BP 131/55; PULSE 68; RESP 18; O2SAT 96
== END 2025-03-26 15:05 | disposition home or self-care (01) ==
LOC: INF 13:58
PROVIDERS: PCP Family Medicine; Visit Provider Internal Medicine Adolescent Medicine
DX: K57.92 Diverticulitis of intestine, part unspecified, without perforation or abscess without bleeding (principal); K63.0 Abscess of intestine
CPT/HCPCS: 96365; J1335

== ENCOUNTER 2025-03-27 14:13 | Outpatient (RCR) | payer BC, SELFPAY ==
[2025-03-27 14:25] VITALS: BP 108/50; PULSE 76; RESP 17; O2SAT 95
[2025-03-27] MEDS: ERTAPENEM SODIUM 1 GM in 0.9 % SODIUM CHLORIDE 50 ML IV (14:25)
[2025-03-27 14:55] VITALS: BP 115/51; PULSE 64; RESP 16
== END 2025-03-27 15:15 ==
LOC: INF 14:13
PROVIDERS: PCP Family Medicine; Visit Provider Internal Medicine Adolescent Medicine
DX: K63.0 Abscess of intestine; K57.92 Diverticulitis of intestine, part unspecified, without perforation or abscess without bleeding
CPT/HCPCS: 96365; J1335

== ENCOUNTER 2025-03-28 14:05 | Outpatient (CLI) | payer BC, SELFPAY ==
[2025-03-28 14:30] VITALS: BP 112/54; PULSE 74; RESP 18; O2SAT 96
[2025-03-28] MEDS: ERTAPENEM SODIUM 1 GM in 0.9 % SODIUM CHLORIDE 50 ML IV (14:30)
[2025-03-28 15:20] VITALS: BP 134/66; PULSE 74; RESP 18; O2SAT 97
== END 2025-03-28 15:20 | disposition home or self-care (01) ==
LOC: INF 14:07
PROVIDERS: PCP Family Medicine; Visit Provider Internal Medicine Adolescent Medicine
DX: K57.92 Diverticulitis of intestine, part unspecified, without perforation or abscess without bleeding (principal); K63.0 Abscess of intestine
CPT/HCPCS: 96365; J1335

== ENCOUNTER 2025-03-29 13:46 | Outpatient (CLI) | payer BC, SELFPAY ==
[2025-03-29] MEDS: ERTAPENEM SODIUM 1 GM in 0.9 % SODIUM CHLORIDE 50 ML IV (13:53)
[2025-03-29 14:05] VITALS: BP 126/57; PULSE 78; RESP 18; TEMP 36.6; O2SAT 99
[2025-03-29 14:39] VITALS: BP 130/86; PULSE 82; RESP 18; O2SAT 98
== END 2025-03-29 14:38 | disposition home or self-care (01) ==
LOC: INF 13:47
PROVIDERS: Visit Provider Internal Medicine Adolescent Medicine
DX: N39.0 Urinary tract infection, site not specified (principal)
CPT/HCPCS: 96365; J1335

== ENCOUNTER 2025-03-30 12:56 | Outpatient (CLI) | payer BC, SELFPAY ==
[2025-03-30 13:07] VITALS: BP 119/50; PULSE 67; RESP 16; TEMP 36.4; O2SAT 98
[2025-03-30] MEDS: ERTAPENEM SODIUM 1 GM in 0.9 % SODIUM CHLORIDE 50 ML IV (13:19)
--- NOTE | 2025-03-30 13:33 | PC.NURSE ---
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 will remove PICC upon [id number] of final dose per order
--- NOTE | 2025-03-30 13:45 | PC.NURSE ---
pt tolerated PICC line removal well
--- NOTE | 2025-03-30 13:53 | PC.NURSE ---
tip of PICC intact. pt tolerated well
[2025-03-30 13:54] VITALS: BP 115/58; PULSE 70; RESP 15; TEMP 36.6; O2SAT 99
== END 2025-03-30 13:54 | disposition home or self-care (01) ==
LOC: INF 12:59
PROVIDERS: Visit Provider Internal Medicine Adolescent Medicine
DX: K57.92 Diverticulitis of intestine, part unspecified, without perforation or abscess without bleeding (principal); K63.0 Abscess of intestine
CPT/HCPCS: 99213; G0463; J1335

== ENCOUNTER 2025-04-15 10:32 | Outpatient (CLI) | payer BC, SELFPAY ==
--- NOTE | 2025-04-15 10:45 | CT_ITS ---
FINAL REPORT TECHNIQUE: Axial CT images of the abdomen were obtained with IV contrast only. Coronal reformatted images were also obtained. This study was performed with techniques to keep radiation doses as low as reasonably achievable (ALARA). Individualized dose reduction techniques using automated exposure control or adjustment of mA and/or kV according to the patient''s size were employed. CLINICAL HISTORY: Diverticulitis COMPARISON: CT abdomen and pelvis 03/22/2025 FINDINGS: The lung bases are clear. The liver parenchyma is homogeneous. The gallbladder is surgically absent. The spleen, pancreas, adrenal glands, and kidneys are unremarkable. There is a large amount of stool throughout the colon. There is abnormal mucosal thickening of the mid sigmoid colon. However, the previously noted intramural and pericolonic fluid collection/abscess has significantly improved with persistent mucosal thickening in the region measuring up to 1.2 cm. The uterus is anteverted. IMPRESSION: Significant improvement and near-complete resolution of intramural/pericolonic fluid collection favored to represent abscess. Persistent mucosal thickening mid sigmoid colon probably related to resolving diverticulitis/colitis. Reviewed, Interpreted and Dictated by Lico Mullins MD Transcribed by Suha Shankar Authenticated and [facility]
[2025-04-15] MEDS: IOPAMIDOL-370 (76%);100ML BOTTLE 75 ML IV (10:50)
[2025-04-15] MEDS: SODIUM CHLORIDE 0.9% 10ML SYR (RAD ONLY) 10 ML IV (10:50)
[2025-04-15] MEDS: BARIUM SULFATE(READI-CAT2);450ML BOTTLE 450 ML PO (13:09)
== END 2025-04-15 23:59 | disposition home or self-care (01) ==
LOC: RAD 10:33
PROVIDERS: PCP Surgery; Visit Provider Surgery
DX: K57.32 Diverticulitis of large intestine without perforation or abscess without bleeding (principal); R93.5 Abnormal findings on diagnostic imaging of other abdominal regions, including retroperitoneum; R93.3 Abnormal findings on diagnostic imaging of other parts of digestive tract
CPT/HCPCS: 74177; Q9967

== ENCOUNTER 2025-05-24 06:20 | Day surgery (SDC) | payer BC, SELFPAY ==
[2025-05-22 08:13] VITALS: BMI 17.4
--- NOTE | 2025-05-24 06:39 | EXP.GEN.HP ---
HPI HPI HPI: Patient presents for colonoscopy due to history of possible diverticulitis. She was hospitalized 03/18/2025 until 03/25/2025 with complicated diverticulitis. There was concern that she could require transfer for interventional radiology drain placement or even surgical resection however while awaiting bed availability her antibiotics were changed to meropenem and her symptoms improved dramatically. She has not had a colonoscopy for at least 14 years. She was seen in the office after her hospitalization and had a follow-up outpatient CT scan which revealed essentially near complete resolution of fluid collection with some resolving thickening and inflammation. [facility] Disclaimer: The information contained in this section may have been updated after the patient was seen, as this information can be updated by other users. Medical History Asthma COPD (chronic obstructive pulmonary disease) Colonoscopy planned Surgical History Hx of breast biopsy Hx of cholecystectomy Family History Other No significant family history Social History (Updated 05/24/25 @ 07:13 by Jacqueline Vazquez CRNA) Smoking Status: Current every day smoker tobacco type: cigarettes packs per day: 2 alcohol intake: never substance use type: unknown current occupational status: employed Travel in the last 8 weeks?: None household members: family housing: house caffeine: Yes Have you lived/traveled outside [place] in past 30 days?: No Contact w/someone who lives/traveled outside [place] past 30 days?: No Exposure to someone with infectious disease in past 14 days?: No Do you have a fever (greater than 100.4 F or 38 C)?: No Have you tested positive for COVID-19?: No Exposed to someone with COVID-19 in past 14 days?: No Do you have a sore throat?: No Do you have a cough?: No Do you have any weakness?: No Are you experiencing any nausea/vomitting?: No Do you have any diarrhea?: No Are you experiencing any unusual bleeding?: No Do you have any muscle aches/pain?: No Do you have any abdominal pain?: No Are you experiencing loss of taste or smell?: No Other Medical History Have you received the Flu Vaccine for this season: No Have you received the Pneumonia Vaccine: No Review of Systems Review of Systems Review of systems:: pertinent systems reviewed and negative unless documented below Meds Home Medications and Allergies Home Medications ?Medication ?Instructions ?Recorded ?Confirmed ?Type albuterol 90 mcg-budesonide 80 2 inh inhalation DAILY PRN SOA 03/18/25 05/24/25 History mcg/actuation HFA aerosol inhaler (Airsupra) Ertapenem Sodium [Invanz 1gm Vial] 100 mls/hr IV Q24H 03/25/25 05/24/25 Rx 1 gm polyethylene glycol 3350 17 gram 17 g PO DAILYP PRN constipation 30 03/25/25 05/24/25 Rx oral powder packet (HealthyLax) days #30 ea sodium,potassium,mag sulfates 17.5 See Rx Instructions PO .COMPLEX 04/18/25 05/22/25 Rx gram-3.13 gram-1.6 gram oral soln #354 mL (Suprep Bowel Prep Kit) New Prescriptions to Start Prescriptions: Allergies Allergy/AdvReac Type Severity Reaction Status Date / Time amoxicillin (From Augmentin) Allergy Rash Verified 05/24/25 06:49 clavulanic acid (From Allergy Rash Verified 05/24/25 06:49 Augmentin) morphine Allergy Unknown Verified 05/24/25 06:49 allergy reaction Exam Data for Last 24 hours I & O for Last 24 hours: Intake & Output 05/21/25 05/22/25 05/23/25 05/24/25 11:59 11:59 11:59 11:59 Weight 89 lb Constitutional Constitutional: no acute distress *Routine HEENT Exam Head: Present normocephalic Eye: Present EOMI and PERRL ENT: Present mucous membranes moist *Routine Neck Exam Neck: Present supple; Absent lymphadenopathy *Routine Respiratory Exam Respiratory: Present CTA bilaterally *Routine Cardiovascular Exam Cardiovascular: Present RRR *Routine Abdominal Exam Abdominal: Present soft and normoactive bowel sounds; Absent tenderness *Routine Rectal Exam Rectal:: deferred *Routine Genitalia Exam Genitalia:: deferred *Routine Extremities Exam Extremities: Absent cyanosis, clubbing or edema *Routine Skin Exam Skin: Present warm; Absent rash *Routine Neurological Exam Neurological: Present alert and oriented X3 Assessment and Plan *Assessment and plan (1) Diverticular disease of large intestine with complication: Status: Acute Category: Medical Code(s): K57.30 - Diverticulosis of large intestine without perforation or abscess without bleeding Plan Proceed with colonoscopy
[2025-05-24 06:50] VITALS: BP 144/73; PULSE 78; RESP 16; TEMP 36.2; O2SAT 96
[2025-05-24] MEDS: LACTATED RINGERS 1000ML 1,000 ML 50 ML IV (06:58)
--- NOTE | 2025-05-24 07:11 | P.PNANES_ITS ---
[facility] Disclaimer: The information contained in this section may have been updated after the patient was seen, as this information can be updated by other users. Medical History Asthma COPD (chronic obstructive pulmonary disease) Colonoscopy planned Surgical History Hx of breast biopsy Hx of cholecystectomy Family History Other No significant family history Social History Smoking Status: Current every day smoker tobacco type: cigarettes packs per day: 2 alcohol intake: never substance use type: unknown current occupational status: employed Travel in the last 8 weeks?: None household members: family housing: house caffeine: Yes [facility] Anesthesia Checklist Patient Identification Patient Identification: Arm Band and Verbal (Name & ) Structural Data Admitted From: Home Planned Operative Procedure/s: colonscopy Consent for Planned Operative Procedure(s) Verified: Yes Verified Documents: Surgical Consent and History and Physical NPO Status Verified Time NPO: 00:00 Additional verifications Anesthesia Reactions: No Previous Colonoscopy: Yes Airway Assessment Mallampati Score:: Class II Dentition: Poor Dentition Neurological Assessment Level of Consciousness: Awake, Alert and Appropriate Hx Seizures: No Numbness or tingling in extremities: No Anesthesia Plan Anesthesia Risk discussed: Yes (Pt refusing to remove contacts, pt understands increased risk for corneal a) Anesthesia Plan: Verified ASA Class: II Anesthesia Type: MAC
--- NOTE | 2025-05-24 08:14 | P.PCN_ITS ---
Procedure: Date: 05/24/25 Patient Date of :: 1960 Procedure Performed:: Colonoscopy to cecum with numerous polypectomy using a variety of technique mostly hot snare. Indications:: Patient presents for colonoscopy due to history of possible diverticulitis. She was hospitalized 03/18/2025 until 03/25/2025 with complicated diverticulitis. There was concern that she could require transfer for interventional radiology drain placement or even surgical resection however while awaiting bed availability her antibiotics were changed to meropenem and her symptoms improved dramatically. She has not had a colonoscopy for at least 14 years. She states that she was told she had a polyp at that time. She was seen in the office after her hospitalization and had a follow-up outpatient CT scan which revealed es sentially near complete resolution of fluid collection with some resolving thickening and inflammation. . Performing Provider:: Fred Lambert MD Referring Provider:: Ralph Angeles MD Sedation:: MAC sedation Procedure:: Patient history was obtained and appropriate physical examination was performed. Patient's medications and allergies were reviewed. Informed consent was obtained after explaining the benefits, alternatives, and risks of the procedure including, but not limited to, bleeding, perforation, missed lesions, and adverse reaction to anesthesia medications. Patient was transported to endoscopy procedure room. Patient was connected to monitoring devices. Throughout the procedure the patient's blood pressure, pulse, and oxygen saturations were monitored continuously. Patient identification and planned procedure were verified by the staff. Patient was positioned in lateral decubitus position. Digital anorectal exam was performed. Variable stiffness Olympus colonoscope was inserted. It was unable to be advanced beyond the distal sigmoid due to narrowing and edema. Colonoscope was replaced with upper endoscope. It was advanced under direct visualization to the cecum. This did require some abdominal pressure. Adequacy of the colonic preparation was noted. Prep was good. In the right colon there were numerous complex adenomatous polyps. These were removed with a variety of technique mostly using hot snare. This often required retrieval using using the Valverde net for maceration of the large polyps. There were 5 complex large adenomatous polyps in the right colon and complex adenomatous polyp at the hepatic flexure. The colonoscope was then slowly withdrawn while carefully examining the color, texture, anatomy, and integrity of the mucosoa circumfer entially. In the sigmoid colon there was diverticuli noted. There was some edema with narrowing of the distal sigmoid near approximately 8 to 20 cm from the anal verge. Within the rectum retroflexion was performed. Endoscope was then withdrawn. Findings:: Diverticulosis Narrowing at the general region of the distal sigmoid Complex right sided colon polyps as noted above Recommendations:: Likely repeat colonoscopy 1 year due to the complex large adenomatous polyps in the right colon. At this time she may be amenable to colonoscopic evaluation using the traditional adult colonoscope. Complications:: None immediately apparent Estimated blood obtained (mL): 1 Colonoscopy Component Colonoscopy Component Was a colonoscopy performed during today's procedure?: Yes Recommended follow up colonoscopy of at least 10 years?: No If no, follow up colonoscopy recommended in ___ years?: 1 Reason for not recommending >/= 10 yr follow-up interval?: See above
[2025-05-24 08:18] VITALS: BP 108/50; PULSE 67; RESP 16; TEMP 36.4; O2SAT 96
[2025-05-24 08:28] VITALS: BP 89/50; PULSE 62; RESP 16; O2SAT 95
[2025-05-24 08:38] VITALS: BP 115/60; PULSE 71; RESP 18; O2SAT 95
[2025-05-24 08:48] VITALS: BP 104/58; PULSE 70; RESP 18; O2SAT 96
== END 2025-05-24 08:49 | disposition home or self-care (01) ==
PROVIDERS: PCP Family Medicine; Visit Provider Surgery
PROC: 0DJD8ZZ Inspection of Lower Intestinal Tract, Via Natural or Artificial Opening Endoscopic (ICD-10-PCS; CPT 45385; principal; 2025-05-24 07:30)
DX: D12.2 Benign neoplasm of ascending colon (principal); D12.3 Benign neoplasm of transverse colon; J44.89 Other specified chronic obstructive pulmonary disease; F17.210 Nicotine dependence, cigarettes, uncomplicated; Z88.1 Allergy status to other antibiotic agents; Z88.0 Allergy status to penicillin; Z88.5 Allergy status to narcotic agent; Z90.49 Acquired absence of other specified parts of digestive tract; Z79.51 Long term (current) use of inhaled steroids; Z79.899 Other long term (current) drug therapy
CPT/HCPCS: 45385; J2003; J2704; J7120